=== PATIENT | male | born 1940 | race Caucasian/White ===

== ENCOUNTER 2025-05-25 20:44 | Inpatient (IN) | payer OTHER, SELFPAY ==
--- NOTE | ~2025-05-25 | XR_ITS ---
Examination: XR chest 1V portable Clinical History: stemi Comparison: 05/28/2018 Technique: Portable AP Findings: Cardiomegaly. Minimal bibasilar atelectasis. No acute bony abnormality. IMPRESSION: 1. Minimal bibasilar atelectasis. 2. Lungs otherwise clear. Reviewed, dictated and finalized at location R.
--- NOTE | ~2025-05-25 | XR_ITS ---
Examination: XR chest 1V portable Clinical History: STEMI Comparison: 1 days prior Technique: Portable AP Findings: Heart size normal. Mild bibasilar atelectasis. No acute bony abnormality. IMPRESSION: 1. Developing mild bibasilar atelectasis. Reviewed, dictated and finalized at location R.
--- NOTE | ~2025-05-25 | US_ITS ---
BILATERAL LOWER EXTREMITY VENOUS DUPLEX Clinical History: Swelling . Comparison: None. Technique: Grayscale, color, duplex/spectral Doppler sonography bilateral lower extremities. Findings: Bilateral common femoral, femoral, popliteal, and calf veins compressible and color Doppler patent. Normal augmentation with distal compression. No internal echoes. IMPRESSION: 1. No DVT either leg. Reviewed, dictated and finalized at location R. IMPRESSION: 1. No DVT either leg.
[2025-05-25 20:41] VITALS: BP 119/71; PULSE 71; RESP 25; TEMP 36.8; O2SAT 98
--- NOTE | 2025-05-25 20:45 | ECG_ITS ---
Test Date: 2025-05-25 20:46:05 Measurements Intervals [place] Rate: 80 P: 0 MI: 0 QRS: 0 QRSD: 73 T: 96 QT: 372 QTc: 430 Interpretive Statements SINUS RHYTHM WITH PVCS ACUTE INFERIOR WALL CURRENT OF INJURY /ACUTE TX ABNORMAL ECG No previous ECG available for comparison Electronically Signed On 05-26-2025 08:41:32 CDT by Keith Lopez M.D.
--- NOTE | 2025-05-25 20:53 | ED.CHESTPAIN ---
HPI - Chest Pain General Chief Complaint: Chest Pain Stated Complaint: STEMI Time Seen by Provider: 05/25/25 20:50 Source: patient History of Present Illness HPI narrative: 85 years old white male lives alone, status post cholecystectomy 3 days ago, call 911 because of chest pain retrosternal started 2 hours prior to arrival, not improving on nitroglycerin. According to EMT patient went to [facility], CPR started, shocked once, regular rhythm, vital signs are stable. Trudy Laurie is telling me that last MRI was 1 year ago. Patient hard to hear, report that he does not wish any life support measures. But it is okay to get cardiac catheterization. CURRENTLY PATIENT STILL HAVING CHEST PAIN RADIATING TO UPPER EXTREMITIES AND HEAD. MD complaint: chest pain Review of Systems Review of Systems: ROS unobtainable: Yes unobtainable due to medical condition Exam Narrative: General appearance: Well-developed, well-nourished, hard to hear, poor hygienic condition Skin: Normal color Head: Normocephalic, nontraumatic Eyes: Clear conjunctiva ENT: Dry oral cavity Neck: Supple, nontender Chest and respiratory: Airway patent, no respiratory distress, no accessory muscle use Heart: Regular rate/rhythm Abdomen: Soft, right upper quadrant dressing status post cholecystectomy, no draining, no organomegaly, quiet bowel sounds Neurologic: Alert and oriented ?3, 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 Bennett was notified Discharge Plan Discharge Clinical Impression: ST elevation (STEMI) myocardial infarction Patient Disposition: Still a Patient Condition: Guarded Prognosis Patient Language: Telugu
--- NOTE | 2025-05-25 20:57 | PC.NURSE ---
heparin bolus in @ 2056
[2025-05-25 21:11] VITALS: PULSE 77; RESP 34; O2SAT 98
[2025-05-25] MEDS: PHARMACIST COMMUNICATION ORDER 1 EACH XX (21:12)
[2025-05-25] MEDS: HEPARIN SOD/D5W 100 UNITS/ML 25,000 UNITS/250 ML BAG 8 UNITS IV CONT (21:12)
[2025-05-25 21:17] VITALS: PULSE 87; RESP 27; O2SAT 100
--- OUTSIDE RECORDS SUMMARY | 2025-05-25 21:17 | XMS_ITS | Encounter Summary ---
Author Organization [facility] Healthcare Address [address] [place] [address] Care Team Providers Care Pot Filler Name Role Phone Royce Panda MD Primary Care Provider [phone] Elen Navarro MD Primary Care Provider [phone] No, Physician Primary Care Provider [phone] Na Agarwal MD Primary Care Provider [phone] No, Physician Primary Care Provider [phone] Encounter Details Date Type Department Care Team (Late st Contact Info) Description 05/28/2018 Orders Only [facility] [place] Health Information Management [address] [place] [id number] Scanning, Provider Social History Tobacco Use Types Packs/Day Years Used Date Smoking Tobacco: Every Day Comments:Smoking History Pac ks/day: 1 Packs Alcohol Use Standard Drinks/Week Comments Yes 0 (1 standard drink = 0.6 oz pur e alcohol) Sex and Gender Information Value Date Recorded Sex Assigned at Not on file 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 Gender Identity Not on file Sexual Orientation Not on file documented as of this encounter Plan of Treatment Not on file documented as of this encounter Procedures Procedure Name Priority Date/Time Associated Diagnosis Comments SCAN - RADIOLOGY/IMAGING 05/28/2018 documented in this encounter Results * SCAN - RADIOLOGY/IMAGING (05/28/2018) Anatomical Region Laterality Modality Other us Provider Scanning Final Result documented in this encounter Visit Diagnoses Not on filedocumented in this encounter Care Teams Pot Filler Relationship Specialty Start Date End Date Royce Panda MD PCP - General 09/04/13 02/12/19 Elen Navarro MD PCP - General Family Medicine 02/13/19 02/21/19 No, Physician PCP - General 02/22/19 07/09/20 Na Agarwal MD PCP - General Nurse Practitioner 07/10/20 03/03/22 No, Physician PCP - General 03/04/22 documented as of this encounter
--- OUTSIDE RECORDS SUMMARY | 2025-05-25 21:17 | XMS_ITS | Encounter Summary ---
Author Organization [facility] Healthcare Address [address] [place] [address] Care Team Providers Care Supervising Chef Name Role Phone Royce Panda MD Primary Care Provider [phone] Elen Navarro MD Primary Care Provider [phone] No, Physician Primary Care Provider [phone] Na Agarwal MD Primary Care Provider [phone] No, Physician Primary Care Provider [phone] Encounter Details Date Type Department Care Team (Late st Contact Info) Description 05/30/2018 [place] Only [facility] [place] [address] [place] [id number] Scanning, Provider Social History Tobacco Use Types Packs/Day Years Used Date Smoking Tobacco: Every Day Comments:Smoking History Pac ks/day: 1 Packs Alcohol Use Standard Drinks/Week Comments Yes 0 (1 standard drink = 0.6 oz pur e alcohol) Sex and Gender Information Value Date Recorded Sex Assigned at Not on file 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 Gender Identity Not on file Sexual Orientation Not on file documented as of this encounter Plan of Treatment Not on file documented as of this encounter Procedures Procedure Name Priority Date/Time Associated Diagnosis Comments CARDIOLOGY DOCUMENT SCAN 05/30/2018 documented in this encounter Results * Cardiology Document Scan (05/30/2018) Anatomical Region Laterality Modality Other us Provider Scanning CV CARDIAC SERVICES PROCEDURES Edited Result - Final documented in this encounter Visit Diagnoses Not on filedocumented in this encounter Care Teams Supervising Chef Relationship Specialty Start Date End Date Royce Panda MD PCP - General 09/04/13 02/12/19 Elen Navarro MD PCP - General Family Medicine 02/13/19 02/21/19 No, Physician PCP - General 02/22/19 07/09/20 Na Agarwal MD PCP - General Nurse Practitioner 07/10/20 03/03/22 No, Physician PCP - General 03/04/22 documented as of this encounter
--- OUTSIDE RECORDS SUMMARY | 2025-05-25 21:18 | XMS_ITS | Clinical Summary ---
Author Organization [facility] [place] [address] Address [address] [place] [address] Care Team Providers Care Customs Appraiser Name Role Phone No, Physician Primary Care Provider [phone] Allergies Active Allergy Reactions Criticality Noted Date Comments Acetaminophen Unknown 04/07/2010 Aspirin Meperidine Unknown 04/07/2010 Penicillins Poison Neena Extract Medications atorvastatin (LIPITOR) 40 mg tablet Take 40 mg by mouth daily. [address] (PROTONIX) 40 mg EC tablet Take 40 mg by mouth daily. 0 8 Active nitroglycerin (NITROSTAT) 0.[address] 1 tablet (0.4 mg total) under the tongue every 5 (five) minutes as needed for chest pain. 90 tablet 8 Active Additional Information Patient not taking.Reported on 03/04/2022 clopidogrel (PLAVIX) 75 mg tablet Take 1 tablet (75 mg total) by mouth daily. 30 tablet 11 8 Active Additional Information Patient not taking.Reported on 03/04/2022 cyanocobalamin 2,000 mcg tablet Take 2,000 mcg by mouth daily Active isosorbide mononitrate ER (IMDUR) 30 mg 24 hr tablet Take 1 tablet (30 mg total) by mouth daily 30 tablet 11 0 Active Additional Information Patient not taking.Reported on 03/04/2022 amLODIPine (NORVASC) 10 mg tablet Take 1 tablet (10 mg total) by mouth daily 30 tablet 11 0 Active Additional Information Patient not taking.Reported on 03/04/2022 lisinopriL (PRINIVIL,ZESTRI L) 10 mg tablet Take 1 tablet (10 mg total) by mouth daily 30 tablet 11 0 Active Additional Information Patient not taking.Reported on 03/04/2022 Active Problems Problem Noted Date Diagnosed Date History of heart artery stent 07/10/2020 Lumbar radiculopathy 02/11/2016 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 Abdominal aortic aneurysm (AAA) 01/31/2015 Atherosclerosis of coronary artery 03/06/2013 Overview (12/17/2016): CAD, Unspecified Immunizations Immunization Administration Dates Next Due Tdap 09/06/2009 Medical History Medical History Date Comments Hx Other Medical Back pain Gout Gout Chronic coronary artery disease Coronary artery disease Hypertension Hyperlipidemia Family History Medical History Relation Name Comments Coronary artery disease Mother Fami ly history of coronary artery disease - (Added by TW Conv) Relation Name Status Comments Mother Social History Tobacco Use Types Packs/Day Years Used Date Smoking Tobacco: Every Day Cigarettes Tobacco Cessation:Ready to Q uit: No; Counseling Given: Yes Comments:Smoking History Packs/day: 1 Packs Alcohol Use Standard Drinks/Week Comments Yes 0 (1 standard drink = 0.6 oz pur e alcohol) Sex and Gender Information Value Date Recorded Sex Assigned at Not on file 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 Gender Identity Not on file Sexual Orientation Not on file Obstetrics History Last Filed Vital Signs Vital Sign Reading Time Taken Comments Blood Pressure 116/74 03/04/2022 2:03 PM CDT Pulse 105 03/04/2022 2:03 PM CDT Temperature 36.3 C (97.3 F) 03/17/2021 10:16 AM CDT Respiratory Rate 15 07/10/2020 11:36 AM ANIMAL CARE ATTENDANT Oxygen Saturation 96% 03/04/2022 2:03 PM CDT Inhaled Oxygen Concentration - - Weight 71.7 kg (158 lb) 03/04/2022 2:03 PM CDT Height 165.1 cm (5' 5) 03/04/2022 2:03 PM CDT Body Mass Index 26.29 03/04/2022 2:03 PM CDT Plan of Treatment Not on file Insurance [facility] [place] Care Teams Customs Appraiser Relationship Specialty Start Date End Date No, Physician PCP - General 03/04/22
--- OUTSIDE RECORDS SUMMARY | 2025-05-25 21:18 | XMS_ITS | Clinical Summary ---
Author Organization [facility] Address [address] [place] [address] Care Team Providers Care Natural Sciences Professor Name Role Phone Oskar Renee MD Unavailable [phone] Na Agarwal NP Primary Care Provider [phone] Gala Agarwal RN Unavailable [phone] Allergies Active Allergy Reactions Criticality Noted Date Comments Aspirin Rash Low Pt states he has been able to tolerate recently with no issues Meperidine Anaphylaxis High 12/10/2015 Demerol Penicillins Seizure,Vomiting High 12/10/2015 Poison Neena Extract Rash Low Medications pantoprazole EC (PROTONIX) 40 MG tabletIndication s: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 90 tablet 1 3 Active Additional Information Patient not taking.Reported on 03/02/2025 nitroglycerin (NITROSTAT) 0.4 MG SL tabletIndication s:Hx of heart artery stent,Coronary artery disease without angina pectoris, unspecified vessel or lesion type, unspecified whether king salmon or transplanted heart Take 1 tablet under tongue at first sign of chest pain. Use every 5 minutes up to 15 minutes. Max 3 tablets 90 tablet 1 3 Active Additional Information Patient not taking.Reported on 03/02/2025 prednisoLONE acetate (PRED FORTE) 1 % ophthalmic suspension Place 1 drop into both eyes 4 (four) times daily. Active albuterol sulfate HFA 108 (90 Base) MCG/ACT inhaler Inhale 2 puffs into the lungs every 6 (six) hours as needed for Shortness of breath or Wheezing. 1 g 4 Active Additional Information Patient not taking.Reported on 03/02/2025 atorvastatin (LIPITOR) 40 MG tabletIndication s:Atherosclerosi s of both carotid arteries Take 1 tablet (40 mg total) by mouth daily. 90 tablet 1 4 Active Additional Information Patient not taking.Reported on 03/02/2025 clopidogrel (PLAVIX) 75 MG tabletIndication s:Coronary artery disease without angina pectoris, unspecified vessel or lesion type, unspecified whether king salmon or transplanted heart,Hx of heart artery stent Take 1 tablet (75 mg total) by mouth daily. 90 tablet 1 4 Active Additional Information Patient not taking.Reported on 03/02/2025 allopurinol (ZYLOPRIM) 100 MG tablet Take 1 tablet (100 mg total) by mouth daily. 4 Active metoprolol tartrate (LOPRESSOR) 25 MG tabletIndication s:Coronary artery disease without angina pectoris, unspecified vessel or lesion type, unspecified whether king salmon or transplanted heart TAKE 1 TABLET(25 MG) BY MOUTH TWICE DAILY 90 tablet 1 4 Active Additional Information Patient not taking.Reported on 03/02/2025 naloxone (NARCAN) 4 MG/0.1ML nasal sprayIndications :Opioid use 1 spray by Nasal route as needed for Opioid reversal. 1 each 5 Active cefdinir (OMNICEF) 300 MG Cap capsuleIndicatio ns:Pneumonia Take 1 capsule (300 mg total) by mouth 2 (two) times daily for 2 days. 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 Chronic low back pain 12/10/2015 Gout 12/10/2015 Insomnia 12/10/2015 Limb pain 12/10/2015 Abdominal aortic aneurysm (AAA) 01/31/2015 Atherosclerosis of coronary artery 03/06/2013 Overview (02/13/2019): Overview: CAD, Unspecified Encounters Date Type Department Care Team Description 05/23/2025 10:30 AM CDT Home Care Visit [facility] [address] [facility] [place] [address] [phone] Sharon Ram RN SN NON ADMIT SOC 05/23/2025 Hospital Follow-up [place] [address] Aaliyah Nowak LPN Follow Up Call (SOO 05/15-05/21/25) 05/22/2025 Telephone [place] [phone] [facility] [address] [place] [phone] Na Agarwal NP TCM 05/22/2025 Patient Outreach [facility] [address] [facility] [address] [place] [address] Gala Agarwal RN TCM (TCM SOO 05/15-05/21/25- cholecystitis. ) 05/21/2025 10:00 AM CDT Home Care Visit [place] [address] [place] [address] [place] [phone] Antonella Dumont, [employer] TELEPHONE CALL 05/21/2025 Telephone [facility] [place] [address] [facility] [place] [phone] Na Agarwal NP Advise 05/16/2025 7:14 PM CDT Anesthesia [place] [address] Stanley Singh MD 05/16/2025 6:30 PM CDT - 05/16/2025 8:[address] [place] [address] Calin Chavez DO Robotic assisted laparoscopic cholecystectomy with indocyanine green 05/16/2025 Patient Outreach [facility] Family [facility] [address] [facility] [address] [place] [address] Gala Agarwal, RN Hospital Follow Up (TCM SOO admit 05/15/25- cholecystitis. ) 05/16/2025 Travel 05/15/2025 11:06 PM CDT - 05/21/2025 1:58 PM CDT Hospital Encounter [facility] [address] Farzana Gaming DO Elayyan, Ibrahim B, MD McGowen, Payton K, MD Simpson, Stephanie L, Luciano Burr MD Chest Pain Discharge Disposition: Home with Home Health Care 05/07/2025 4:01 AM CDT - 05/07/2025 8:40 AM CDT Emergency [facility] [place] [address] Pritesh Mary MD,PHD Sherman Walsh MD Chest Pain Discharge Disposition: Home or Self Care (Routine Discharge) 05/07/2025 Travel 03/05/2025 Telephone [facility] - [place] [address] [place] [address] Santi Steele MD Appointment Request 03/02/2025 11:20 AM CDT Office Visit [address] [place] [phone] Na Agarwal NP TCM (Patient presents for TCM from [facility] for fractured Humerus, discharged 02/22/2025. Having lots of pain./) 03/02/2025 Travel 02/27/2025 Patient Outreach [address] [phone] Gala Agarwal RN Hospital Follow Up (Call to patient's son. ) 02/26/2025 Patient Outreach [address] [address] Gala Agarwal RN TCM (TCM SOO 02/21-02/23/25- humeral fracture. ) 02/24/2025 Scan [email or web address] [facility] Scanned, [facility] 02/22/[address] [address] Na Agarwal NP TCM 02/22/2025 Patient Outreach [address] [address] Gala Agarwal RN Hospital Follow Up (TCM SOO admit 02/21/25- humeral fracture. ) 02/21/2025 9:26 PM CDT - 02/23/2025 11:58 AM CDT Hospital Encounter [facility] Med/Surg 3rd Floor [address] [facility] [place] [address] Pritesh Mary MD,PHD Brent Spaulding MD Simpson, Stephanie L, DO Fall; Facial Injury Discharge Disposition: Home or Self Care (Routine Discharge) from Last 3 Months Immunizations Immunization Administration Dates Next Due DT (Generic) 05/09/2010 Tdap (Boostrix) 02/21/2025 Tdap (Generic) 03/11/2021,09/06/2009 Family History Medical History Relation Comments Alzheimers Brother Heart Disease Brother Stroke Brother Alzheimers Daughter None Mother Heart Disease Sister Relation Status Comments Brother Daughter Mother Sister Social History Tobacco Use Types Packs/Day Years Used Date Smoking Tobacco: Every Day Cigarettes 1 64 Passive Smoke Exposure: Current Smokeless Tobacco: Never Tobacco Cessation:Ready to Q uit: No; Counseling Given: Yes Comments:Smokes since age 15 Alcohol Use Standard Drinks/Week Comments No 0 (1 standard drink = 0.6 oz pur e alcohol) [facility] Utilities Answer Date Recorded In the past 12 months has e [employer], gas, oil, or water [employer] threatened to shut off services in your home? No 05/16/2025 Humiliation, Afraid, Rape, and Kick questionnair e Answer Date Recorded Within the last year, have y ou been afraid of your partner or ex-partner? No 05/16/2025 Within the last year, have y ou been humiliated or emotionally abused in other ways by your partner or ex-partner? No Within the last year, have y ou been kicked, hit, slapped, or otherwise physically hurt by your partner or ex-partner? No 05/16/2025 Within the last year, have y ou been raped or forced to have any kind of sexual activity by your partner or ex-partner? No 05/16/2025 AUDIT-C Answer Date Recorded Q1: How often do you have a drink containing alc ohol? Never 08/01/2023 Average Number of Drinks Not on file 023 Frequency of Binge Drinking Not on file 07/08 Overall Financial Resource Strain (CARDIA) Answe r Date Recorded How hard is it for you to pa y for the very basics like food, housing, medical care, and heating? Somewhat hard 05/16/2025 PHQ-2 Answer Date Recorded Patient Health Questionnaire-2 Score 0 01/25/2024 Hunger Vital Sign Answer Date Recorded Within the past 12 months, y ou worried that your food would run out before you got the money to buy more. Sometimes true Within the past 12 months, t he food you bought just didn't last and you didn't have money to get more. Sometimes true 06/2025 PRAPARE - Transportation Answer Date Re corded In the past 12 months, has l ack of transportation kept you from medical appointments or from getting medications? No 05/07 In the past 12 months, has l ack of transportation kept you from meetings, work, or from getting things needed for daily living? No 05/16/2025 Housing Stability Vital Sign Answer Daniel e Recorded In the last 12 months, was t here a time when you were not able to pay the mortgage or rent on time? Patient declined 08/01/20 23 In the last 12 months, how many places have you lived? 1 08/01/2023 In the last 12 months, was t here a time when you did not have a steady place to sleep or slept in a [place] (including now)? No 08/01/2023 Housing Stability Vital Sign Answer Daniel e Recorded In the last 12 months, was t here a time when you were not able to pay the mortgage or rent on time? No 05/16/2025 In the past 12 months, how m any times have you moved where you were living? 0 05/16/2025 At any time in the past 12 m [facility], were you homeless or living in a [place] facility (including now)? No 05/16/2025 Sex and Gender Information Value Date Recorded Sex Assigned at Male 02/22/2025 3:37 AM CDT Legal Sex Male 2:41 PM CDT Gender Identity Male 02/22/2025 3:37 AM CDT Sexual Orientation Straight 02/22/2025 3: 37 AM CDT Last Filed Vital Signs Vital Sign Reading Time Taken Comments Blood Pressure 150/89 05/21/2025 11:31 AM CDT Pulse 69 05/21/2025 11:31 AM CDT Temperature 36.9 C (98.4 F) 05/21/2025 11:31 AM CDT Respiratory Rate 19 05/21/2025 11:3 1 AM CDT Oxygen Saturation 94% 05/21/2025 11: 31 AM CDT Inhaled Oxygen Concentration - - Weight 69.3 kg (152 lb 12.5 oz) 05/21/2025 3:46 AM CDT Height 165.1 cm (5' 5) 05/15/2025 11:1 7 PM CDT Body Mass Index 25.42 05/15/2025 11:17 PM CDT Plan of Treatment Upcoming Encounters Date Type Department Care Team (Late st Contact Info) Description 06/04/2025 12:40 PM CDT Office Visit [facility] Family [facility] - [place] [address] [facility] [address] [place] [address] Na Agarwal, KEARA [address] [place], [place] [address] Health Maintenance Due Date Last Done Comments Pneumococcal Vaccine: 50+ Years (1 of 2 - PCV) 01/05/1959 Zoster Vaccines (1 of 2) 1991 RSV Immunization or 60+ Years (1 - 1-dose 75+ series) 01/05/2016 PHQ-2 (Physician [place]) 09/06/2024 01/25/2024 ASCVD LDL 02/04/2025 02/05/2024, 1110/2022, 06/11/2020, Additional history exists COVID-19 Vaccine ( - 2023- season) 2025 Annual Medicare Wellness Visit 12/19/2025 Postponed from 2006 (Patient Refused) DTaP, Tdap and Td Vaccines (5 - Td or Tdap) 02/21/2035 02/21/2025, 03/11/2021, 05/09/2010, Additional history exists Meningococcal B Vaccine Aged Out No l onger eligible based on patient's age to complete this topic Meningococcal Vaccine Aged Out No darrel fern eligible based on patient's age to complete this topic RSV Immunizations Under 20 Months Aged Out No longer eligible based on patient's age to complete this topic Goals Goal Patient Goal Type Associated Problems Recent Progress Patient-Stated? Author Family - family caregiver with be involved in care transitions and discharge planning Lifestyle No Carlos Arango, RN Consistently take medications as Prescribed Lifestyle No Gala Agarwal, RN Interventions Community Resource Recommendations Community Resource Services Recommended Domains Addressed Status Status Reason/Outcome Date/Time LIHEAP Financial Assistance Financial Resource Strain Recommended 05/16/2025 1:18 PM CDT [facility] - Housing Counseling Financial Education, Foreclosure Counseling, Homebuyer Education Financial Resource Strain Recommended 05/16/2025 1:18 PM CDT [facility] - Utility Assistance Financial Assistance Financial Resource Strain Recommended 05/16/2025 1:[address] - MedAssist Program Prescription Assistance Financial Resource Strain Recommended 05/16/2025 1:18 PM CDT [facility] - Food Pantry Food Pantry Food Insecurity Recommended 05/16/2025 1:18 PM CDT [place] [employer] - [facility] Meals [employer] Wheels Food Delivery Food Insecurity Recommended 05/16/2025 1:18 PM CDT [facility] - Food Pantry Food Pantry Food Insecurity Recommended 05/16/2025 1:18 PM CDT [facility] Food Pantry Food Pantry Food Insecurity Recommended 05/16/2025 1:18 PM CDT [facility] - Food Pantries Food Pantry Food Insecurity Recommended 05/16/2025 1:18 PM CDT [facility] - Emergency Food Pantry of [facility] Food Pantry Food Insecurity Recommended 05/16/2025 1:18 PM CDT [facility] Food Pantry Food Pantry Food Insecurity Recommended 05/16/2025 1:18 PM CDT [employer] [employer] Food Insecurity Services Food Insecurity Recommended 03/25/2025 11:41 PM CDT [facility] Food Pantry Food Insecurity Services Food Insecurity Recommended 03/25/2025 11:41 PM CDT [facility] Financial Assistance Financial Resource Strain Recommended 03/25/2025 11:41 PM CDT from Last 12 Months Procedures Procedure Name Priority Date/Time Associated Diagnosis Comments BASIC METABOLIC PANEL Routine 05/21/2025 5:42 AM CDT CBC W/DIFF AUTOMATED Routine 05/21/2025 5:42 AM CDT BASIC METABOLIC PANEL Routine 05/20/2025 6:24 AM CDT CBC W/DIFF AUTOMATED Routine 05/20/2025 6:24 AM CDT CBC W/DIFF AUTOMATED Routine 05/19/2025 6:44 AM CDT BASIC METABOLIC PANEL Routine 05/19/2025 6:44 AM CDT CTA CHEST PE PROTOCOL Today 05/18/2025 8:39 PM CDT RESPIRATORY PCR PANEL 2 STAT 05/18/20 5:10 PM CDT XR CHEST PORTABLE Today 05/18/2025 11: 01 AM CDT HEPATIC FUNCTION PANEL STAT 8:42 AM CDT BASIC METABOLIC PANEL Routine 05/18/2025 6:00 AM CDT CBC W/DIFF AUTOMATED Routine 05/18/2025 6:00 AM CDT CBC W/DIFF AUTOMATED Routine 05/17/2025 5:50 AM CDT MAGNESIUM Routine 05/17/2025 5:50 AM CDT COMPREHENSIVE METABOLIC PANEL Routine 05/17/2025 5:50 AM CDT ECG 12-LEAD Routine 05/16/2025 9:35 PM CDT MAGNESIUM Routine 05/16/2025 9:29 PM CDT BASIC METABOLIC PANEL Routine 05/16/2025 9:29 PM CDT TROPONIN, QUANT Routine 05/16/2025 9:29 PM CDT ROBOTIC XI CHOLECYSTECTOMY 05/16/2025 7:14 PM CDT cholecystitis US ABD LIMITED STAT 05/16/2025 10:19 AM CDT TROPONIN, QUANT STAT 05/16/2025 5:17 AM CDT THYROID STIM HORMONE TSH STAT 05/16/2025 5:17 AM CDT HEMOGLOBIN, GLYCOSYLATED Routine 05/16/2025 5:17 AM CDT MAGNESIUM STAT 05/16/2025 5:17 AM CDT COMPREHENSIVE METABOLIC PANEL STAT 05/16/2025 5:17 AM CDT PROTHROMBIN TIME, VENOUS STAT 05/16/2025 5:17 AM CDT CBC W/DIFF AUTOMATED STAT 05/16/2025 5:17 AM CDT ECG 12-LEAD STAT 05/16/2025 2:32 AM CDT TROPONIN, QUANT STAT 05/16/2025 2:27 AM CDT CRITICAL CARE Routine 05/16/2025 1:03 AM CDT CTA CHEST+CT ABD+PEL W CON STAT 05/16/2025 12:29 AM CDT PATHOLOGY Routine 05/16/2025 12:00 AM CDT XR CHEST PORTABLE STAT 05/15/2025 11: 39 PM CDT ECG 12-LEAD STAT 05/15/2025 11:15 PM CDT LIPASE STAT 05/15/2025 11:12 PM CDT MAGNESIUM STAT 05/15/2025 11:12 PM CDT TROPONIN, QUANT STAT 05/15/2025 11:12 PM CDT COMPREHENSIVE METABOLIC PANEL STAT 05/15/2025 11:12 PM CDT CBC W/DIFF AUTOMATED STAT 05/15/2025 11:12 PM CDT PRO-BRAIN NATRIURETIC PEPTIDE Routine 05/15/2025 11:10 PM CDT CTA CHEST+CT ABD+PEL W CON STAT 05/07/2025 6:06 AM CDT TROPONIN, QUANT STAT 05/07/2025 6:05 AM CDT ECG 12-LEAD STAT 05/07/2025 5:52 AM CDT XR CHEST PORTABLE STAT 05/07/2025 4:4 3 AM CDT TROPONIN, QUANT STAT 05/07/2025 4:01 AM CDT COMPREHENSIVE METABOLIC PANEL STAT 05/07/2025 4:01 AM CDT CBC W/DIFF AUTOMATED STAT 05/07/2025 4:01 AM CDT ECG 12-LEAD STAT 05/07/2025 3:54 AM CDT BASIC METABOLIC PANEL Routine 02/23/2025 4:50 AM CDT MAGNESIUM Routine 02/23/2025 4:50 AM CDT CBC W/DIFF AUTOMATED Routine 02/23/2025 4:50 AM CDT COMPREHENSIVE METABOLIC PANEL STAT 02/22/2025 12:45 AM CDT CBC W/DIFF AUTOMATED STAT 02/22/2025 12:[address] SHOULDER RT WO CON STAT 02/22/2025 12:19 AM CDT LIPID PANEL Routine 02/05/2024 10:44 AM CDT Atherosclerosis of both carotid arteries from Last 3 Months or Most Recently Relevant to Health Maintenance Results * (ABNORMAL) BASIC METABOLIC PANEL (05/21/2025 5:42 AM CDT) Only the most recent of6 resultswithin the time period is included. [facility] GLUCOSE 110(H) 70 - 99 MG/DL 05/21/2025 7:12 AM CDT [facility] BUN 9 7 - 18 MG/DL 05/21/2025 7:12 AM T [facility] CREATININE S/P/B 0.76 0.7 - 1.3 MG/DL 05/21/2025 7:12 AM CDT [facility] SODIUM S/P/B 142 136 - 145 MMOL/L 05/21/2025 7:12 AM T [facility] POTASSIUM S/P/B 3.5 3.5 - 5.1 MMOL/L 05/21/2025 7:12 AM T [facility] CHLORIDE S/P/B 115 97 - 115 MMOL/L 05/21/2025 7:12 AM T [facility] CO2 22.2 21 - 32 MMOL/L 05/21/2025 7:12 AM T [facility] CALCIUM S/P/B 8.2(L) 8.5 - 10.1 MG/DL 05/21/2025 7:12 AM T [facility] ANION GAP 4.8 2 - 10 MMOL/L 05/21/2025 7:12 AM T [facility] BUN CREATININE RATIO 11.9 6 - 26 05/21/2025 7:12 AM T [facility] GFR ESTIMATE 89(L) >90 ML/MIN/1.7 3 M2 05/21/2025 7:12 AM T [facility] Comment: NOTE: eGFR is not calculated for patients <18 years of age or gender unknown. This is an estimated GFR calculation using the new CKD EPI creatinine equation without race and so does not require a correction factor for race. This estimated GFR should not be used for calculating drug doses. 05/21/2025 5:42 AM CDT Luciano Clark MD LABORATORY Final Result [facility] [address] [place] [address], * (ABNORMAL) CBC W/DIFF AUTOMATED (05/21/2025 5:42 AM CDT) Only the most recent of10 resultswithin the time period is included. WBC 8.44 4.5 - 11.0 x10'3/uL 05/21/2025 7:22 AM CDT [facility] RBC 3.56(L) 4.70 - 6.10 x10'6/uL 05/21/2025 7:22 AM CDT [facility] HGB 11.0(L) 14.0 - 18.0 G/DL 05/21/2025 7:22 AM CDT [facility] HCT 33.5(L) 43.0 - 54.0 % 05/21/2025 7:22 AM CDT [facility] MCV 94.1(H) 80.0 - 94.0 FL 05/21/2025 7:22 AM CDT [facility] MCH 30.9 27.0 - 31.0 PG 05/21/2025 7:22 AM CDT [facility] MCHC 32.8 32.0 - 36.0 G/DL 05/21/2025 7:22 AM CDT [facility] RDW 13.6 11.5 - 14.5 % 05/21/2025 7:22 AM CDT [facility] PLT 148 130 - 400 x10'3/uL 05/21/2025 7:22 AM CDT [facility] MPV 11.6 9.3 - 12.2 FL 05/21/2025 7:22 AM CDT [facility] DIFFERENTIAL TYPE AUTOMATED DIFFERENTIAL 05/21/2025 7:22 AM CDT [facility] NEUTROPHILS % 60.8 % 05/21/2025 7:22 AM CDT [facility] LYMPHOCYTES % 23.8 % 05/21/2025 7:22 AM CDT [facility] MONOCYTES % 10.2 % 05/21/2025 7:22 AM T [facility] EOSINOPHILS 4.1 % 05/21/2025 7:22 AM T [facility] BASOPHILS 0.6 % 05/21/2025 7:22 AM T [facility] IMMATURE GRANS % 0.5 % 05/21/20 7:22 AM CDT [facility] ABS. NEUTROPHILS 5.13 1.80 - 7.70 x10'3/uL 05/21/2025 7:22 AM CDT [facility] ABS. LYMPHOCYTES 2.01 1.00 - 4.80 x10'3/uL 05/21/2025 7:22 AM CDT [facility] ABS. MONOCYTES 0.86(H) 0.30 - 0.82 x10'3/uL 05/21/2025 7:22 AM CDT [facility] ABS. EOSINOPHILS 0.35 0.04 - 0.54 x10'3/uL 05/21/2025 7:22 AM CDT [facility] ABS. BASOPHILS 0.05 0.01 - 0.08 x10'3/uL 05/21/2025 7:22 AM CDT [facility] ABS. IMMATURE GRANULOCYTES 0.04 0.00 - 0.49 x10'3/uL 05/21/2025 7:22 AM CDT [facility] RBC MORPHOLOGY SLIDE REVIEWED 2024 7:22 AM CDT [facility] Clumped Platelets 1+ 05/21/2025 7:22 AM CDT [facility] PLT EST. ADEQUATE 05/21/2025 7:22 AM CDT [facility] 05/21/2025 5:42 AM CDT Merry Haskins DO LABORATORY Final Res ult [facility] [address] [place] [address], [place] [phone] * CTA CHEST PE PROTOCOL (05/18/2025 8:39 PM CDT) Anatomical Region Laterality Modality Chest Computed Tomogra phy 05/18/2025 8:46 PM CDT Impressions 05/18/2025 8:56 PM CDT IMPRESSION: 1. There is no acute pulmonary embolism to the first subsegmental pulmonary artery level. 2. CT findings suggestive of right lung multifocal pneumonia/aspiration. A follow- up CT chests in 8-12 weeks is recommended to ensure complete resolution. 3. Mild pulmonary vascular congestion. 4. Mild bilateral bronchial wall thickening, which can be seen with small infection/inflammation, volume overload or reactive airway disease 5. Trace right pleural effusion. 6. Cardiomegaly with moderate coronary calcific atherosclerosis. 7. Diffuse body edema, likely secondary to volume overload. Ordered By: MERRY HASKINS Interpreted By: Guy Mcneil MD, 05/18/2025 8:46 PM Narrative 05/18/2025 8:[address] [facility] [address] [place], [place] [address] PROCEDURE: CTA CHEST PE PROTOCOL. HISTORY: Evaluate for pulmonary embolism. Hypoxia rule out pulmonary embolism. TECHNIQUE: Contrast enhanced helical CT pulmonary angiography was then performed (Isovue- 370, 100 mL). Routine transaxial and post-processed (sagittal and coronal MPR) reformations of the acquired data sets were obtained. Standard 3-D (MIP) reformations of the acquired data sets were also obtained. A dose lowering technique was used for this procedure, which may include, but is not limited to, dose reduction technique, automated exposure control, the use of iterative reconstruction, and ALARA (As Low As Reasonably Achievable) / Image Gently techniques. COMPARISON: CT chests, CT abdomen pelvis with contrast, 05/16/2025. PULMONARY CTA FINDINGS: This is a diagnostic quality helical CT pulmonary angiogram. There is no acute pulmonary embolism to the first subsegmental pulmonary artery level. OTHER FINDINGS: Support Devices: None. Heart/Pericardium/Great Vessels: Cardiac size is enlarged. There is moderate calcific coronary artery atherosclerosis. There is no pericardial effusion. There is mild thoracic aortic and branch vessel atherosclerosis, portions calcific. The main pulmonary artery is normal in diameter. The mid ascending thoracic aorta measures up to 3.5 cm. Pleural Spaces: Trace right pleural effusion. Left pleural space is clear. Mediastinum/Tessie: There is no mediastinal or hilar lymph node enlargement. Neck Base/Chest Wall/Diaphragm/Upper Abdomen: There is no supraclavicular or axillary lymph node enlargement. There is a subhepatic surgical drain within the right upper quadrant. Limited imaging through the upper abdomen is within normal limits. Multilevel change is present in the spine. There is diffuse wall edema Lungs/Central Airways: The trachea and central airways are clear normal in caliber. There is bilateral bronchial wall thickening. There are right basilar groundglass and consolidative opacities. There is a peripheral right upper lobe groundglass opacity.. Mild pulmonary vascular congestion. Procedure Note Guy Mcneil MD - 05/18/2025 [facility] [address] [place], [place] [address] PROCEDURE: CTA CHEST PE PROTOCOL. HISTORY: Evaluate for pulmonary embolism. Hypoxia rule out pulmonaryembolism. TECHNIQUE: Contrast enhanced helical CT pulmonary angiography was thenperformed (Isovue-370, 100 mL). Routine transaxial and post-processed(sagittal and coronal MPR) reformations of the acquired data sets wereobtained. Standard 3-D (MIP) reformations of the acquired data sets werealso obtained. A dose lowering technique was used for this procedure, which may include,but is not limited to, dose reduction technique, automated exposurecontrol, the use of iterative reconstruction, and ALARA (As Low AsReasonably Achievable) / Image Gently techniques. COMPARISON: CT chests, CT abdomen pelvis with contrast, 05/16/2025. PULMONARY CTA FINDINGS: This is a diagnostic quality helical CT pulmonaryangiogram. There is no acute pulmonary embolism to the first subsegmentalpulmonary artery level. OTHER FINDINGS: Support Devices: None. Heart/Pericardium/Great Vessels: Cardiac size is enlarged. There is moderate calcific coronary artery atherosclerosis. There is no pericardial effusion. There is mild thoracic aortic and branch vessel atherosclerosis,portions calcific. The main pulmonary artery is normal in diameter. The mid ascendingthoracic aorta measures up to 3.5 cm. Pleural Spaces: Trace right pleural effusion. Left pleural space isclear. Mediastinum/Tessie: There is no mediastinal or hilar lymph nodeenlargement. Neck Base/Chest Wall/Diaphragm/Upper Abdomen: There is no supraclavicularor axillary lymph node enlargement. There is a subhepatic surgical drainwithin the right upper quadrant. Limited imaging through the upper abdomenis within normal limits. Multilevel change is present in the spine. Thereis diffuse wall edema Lungs/Central Airways: The trachea and central airways are clear normalin caliber. There is bilateral bronchial wall thickening. There are rightbasilar groundglass and consolidative opacities. There is a peripheralright upper lobe groundglass opacity.. Mild pulmonary vascularcongestion. IMPRESSION: 1. There is no acute pulmonary embolism to the first subsegmentalpulmonary artery level. 2. CT findings suggestive of right lung multifocal pneumonia/aspiration.A follow-up CT chests in 8-12 weeks is recommended to ensure completeresolution. 3. Mild pulmonary vascular congestion. 4. Mild bilateral bronchial wall thickening, which can be seen with smallinfection/inflammation, volume overload or reactive airway disease 5. Trace right pleural effusion. 6. Cardiomegaly with moderate coronary calcific atherosclerosis. 7. Diffuse body edema, likely secondary to volume overload. Ordered By: MERRY HASKINS Interpreted By: Guy Mcneil MD, 05/18/2025 8:46 PM us Merry Haskins DO CT Final Res ult * RESPIRATORY PCR PANEL 2 (05/18/2025 5:10 PM CDT) Pathologist [facility] ADENOVIRUS PCR (RESP) NOT DETECTED NOT DETECTED 05/18/2025 6:15 PM CDT [facility] CORONAVIRUS 229E PCR (RESP) NOT DETECTED NOT DETECTED 05/18/2025 6:15 PM CDT [facility] CORONAVIRUS HKU1 PCR (RESP) NOT DETECTED NOT DETECTED 05/18/2025 6:15 PM CDT [facility] CORONAVIRUS NL63 PCR (RESP) NOT DETECTED NOT DETECTED 05/18/2025 6:15 PM CDT [facility] CORONAVIRUS OC43 PCR (RESP) NOT DETECTED NOT DETECTED 05/18/2025 6:15 PM CDT [facility] METAPNEUMOVIRUS PCR (RESP) NOT DETECTED NOT DETECTED 05/18/2025 6:15 PM CDT [facility] RHINOVIRUS/ENTEROV IRUS PCR (RESP) NOT DETECTED NOT DETECTED 05/18/2025 6:15 PM CDT [facility] INFLUENZA A PCR (RESP) NOT DETECTED NOT DETECTED 05/18/2025 6:15 PM CDT [facility] INFLUENZA B PCR (RESP) NOT DETECTED NOT DETECTED 05/18/2025 6:15 PM CDT [facility] PARAINFLUENZA 1 PCR (RESP) NOT DETECTED NOT DETECTED 05/18/2025 6:15 PM CDT [facility] PARAINFLUENZA 2 PCR (RESP) NOT DETECTED NOT DETECTED 05/18/2025 6:15 PM CDT [facility] PARAINFLUENZA 3 PCR (RESP) NOT DETECTED NOT DETECTED 05/18/2025 6:15 PM CDT [facility] PARAINFLUENZA 4 PCR (RESP) NOT DETECTED NOT DETECTED 05/18/2025 6:15 PM CDT [facility] RSV PCR (RESP) NOT DETECTED NOT DETECTED 05/18/2025 6:15 PM CDT [facility] B PARAPERTUSIS PCR (RESP) NOT DETECTED NOT DETECTED 05/18/2025 6:15 PM CDT [facility] BORDETELLA PERTUSSIS PCR (RESP) NOT DETECTED NOT DETECTED 05/18/2025 6:15 PM CDT [facility] CHLAMYDOPHILA PNEUMONIAE PCR (RESP) NOT DETECTED NOT DETECTED 05/18/2025 6:15 PM CDT [facility] MYCOPLASMA PNEUMONIAE PCR (RESP) NOT DETECTED NOT DETECTED 05/18/2025 6:15 PM CDT [facility] CORONAVIRUS SARS COV 2 PCR (RESP) NOT DETECTED NOT DETECTED 05/18/2025 6:15 PM CDT [facility] NASOPHARYNGEAL SWAB / Unknown 05/18/2025 5:10 PM CDT Merry Haskins DO MICROBIOLOGY - GENERAL OR DERABLES Final Result [facility] [address] [place] [address], [place] [phone] * XR CHEST PORTABLE (05/18/2025 11:01 AM CDT) Only the most recent of3 resultswithin the time period is included. Anatomical Region Laterality Modality Chest Radiographic Vivi ging 05/18/2025 12:3 0 PM CDT Impressions 05/18/2025 12:38 PM CDT Impression: No convincing acute, active cardiopulmonary radiographic finding Ordered By: MERRY HASKINS Interpreted By: Gary Clark MD, 05/18/2025 12:30 PM Narrative 05/18/2025 12:38 PM CDT [place] [address] Examination: Chest x-ray 1 view Exam date/time: 05/18/2025 10:38 AM Reason For Exam: 85 male. Wheezing Comparison: CTA chest 05/26/2025. Chest x-ray 05/15/2025 Technique: Portable AP upright view of the chest Findings: Stable mild cardiomegaly. Normally positioned trachea. Elongated thoracic aorta. Hilar and mediastinal contours are within normal limits. Asymmetric mild prominence of bronchovascular markings in the right lung may be due to crowding and mild volume loss compared to the left. No confluent consolidation, sizable effusion on this view Unremarkable upper abdomen Procedure Note Gary Clark MD - 05/18/[address] [address] Examination: Chest x-ray 1 view Exam date/time: 05/18/2025 10:38 AM Reason For Exam: 85 male. Wheezing Comparison: CTA chest 05/26/2025. Chest x-ray 05/15/2025 Technique: Portable AP upright view of the chest Findings: Stable mild cardiomegaly. Normally positioned trachea. Elongatedthoracic aorta. Hilar and mediastinal contours are within normal limits.Asymmetric mild prominence of bronchovascular markings in the right lungmay be due to crowding and mild volume loss compared to the left. Noconfluent consolidation, sizable effusion on this view Unremarkable upper abdomen Impression: No convincing acute, active cardiopulmonary radiographic finding Ordered By: MERRY HASKINS Interpreted By: Gary Clark MD, 05/18/2025 12:30 PM Merry Haskins DO GENERAL IMAGING Final Res ult * (ABNORMAL) HEPATIC FUNCTION PANEL (05/18/2025 8:42 AM CDT) TOTAL PROTEIN S/P/B 6.8 6.4 - 8.2 G/DL 05/18/2025 9:27 AM CDT [facility] ALBUMIN S/P/B 2.4(L) 3.4 - 5.0 G/DL 05/18/2025 9:27 AM CDT [facility] BILIRUBIN TOTAL S/P/B 0.7 0.2 - 1.2 MG/DL 05/18/2025 9:27 AM CDT [facility] Comment: THIS ASSAY IS NOT RECOMMENDED FOR PATIENTS UNDERGOING TREATMENT WITH ELTROMBOPAG DUE TO THE POTENTIAL FOR FALSELY ELEVATED RESULTS. BILIRUBIN DIRECT S/P/B 0.2 0.0 - 0.20 MG/DL 05/18/2025 9:27 AM CDT [facility] BILIRUBIN INDIRECT S/P/B 0.5 0.0 - 0.9 MG/DL 05/18/2025 9:27 AM CDT [facility] ALKALINE PHOSPHATASE S/P/B 78 50 - 136 U/L 05/18/2025 9:27 AM CDT [facility] AST 28 15 - 37 U/L 05/18/2025 9:27 AM CDT [facility] ALT 23 16 - 60 U/L 05/18/2025 9:27 AM CDT [facility] A/G RATIO 0.5(L) 1.0 - 2.0 RATIO 05/18/2025 9:27 AM CDT [facility] 05/18/2025 8:42 AM CDT us Merry Rubi Jozef DO LABORATORY Final Res ult [facility] [address] [place] [address], [place] [phone] * (ABNORMAL) COMPREHENSIVE METABOLIC PANEL (05/17/2025 5:50 AM CDT) Only the most recent of5 resultswithin the time period is included. [facility] GLUCOSE 131(H) 70 - 99 MG/DL 05/17/2025 6:49 AM CDT [facility] BUN 12 7 - 18 MG/DL 05/17/2025 6:49 AM CDT [facility] CREATININE S/P/B 1.00 0.7 - 1.3 MG/DL 05/17/2025 6:49 AM CDT [facility] SODIUM S/P/B 142 136 - 145 MMOL/L 05/17/2025 6:49 AM CDT [facility] POTASSIUM S/P/B 3.5 3.5 - 5.1 MMOL/L 05/17/2025 6:49 AM CDT [facility] CHLORIDE S/P/B 112 97 - 115 MMOL/L 05/17/2025 6:49 AM CDT [facility] CO2 24.0 21 - 32 MMOL/L 05/17/2025 6:49 AM CDT [facility] CALCIUM S/P/B 8.3(L) 8.5 - 10.1 MG/DL 05/17/2025 6:49 AM CDT [facility] BILIRUBIN TOTAL S/P/B 0.8 0.2 - 1.2 MG/DL 05/17/2025 6:49 AM CDT [facility] Comment: THIS ASSAY IS NOT RECOMMENDED FOR PATIENTS UNDERGOING TREATMENT WITH ELTROMBOPAG DUE TO THE POTENTIAL FOR FALSELY ELEVATED RESULTS. TOTAL PROTEIN S/P/B 6.6 6.4 - 8.2 G/DL 05/17/2025 6:49 AM CDT [facility] ALBUMIN S/P/B 2.5(L) 3.4 - 5.0 G/DL 05/17/2025 6:49 AM CDT [facility] AST 45(H) 15 - 37 U/L 05/17/2025 6:49 AM CDT [facility] ALT 25 16 - 60 U/L 05/17/2025 6:49 AM T [facility] ALKALINE PHOSPHATASE S/P/B 83 50 - 136 U/L 05/17/2025 6:49 AM T [facility] ANION GAP 6.0 2 - 10 MMOL/L 05/17/2025 6:49 AM T [facility] BUN CREATININE RATIO 12.0 6 - 26 05/17/2025 6:49 AM T [facility] A/G RATIO 0.6(L) 1.0 - 2.0 RATIO 05/17/2025 6:49 AM T [facility] GFR ESTIMATE 74(L) >90 ML/MIN/1.7 3 M2 05/17/2025 6:49 AM T [facility] Comment: NOTE: eGFR is not calculated for patients <18 years of age or gender unknown. This is an estimated GFR calculation using the new CKD EPI creatinine equation without race and so does not require a correction factor for race. This estimated GFR should not be used for calculating drug doses. 05/17/2025 5:50 AM CDT us Calin Chavez DO LABORATORY Final Result [facility] [address] [place] [address], [place] [phone] * MAGNESIUM (05/17/2025 5:50 AM CDT) Only the most recent of5 resultswithin the time period is included. MAGNESIUM 1.9 1.8 - 2.4 MG/DL 05/17/2025 6:49 AM CDT [facility] 05/17/2025 5:50 AM CDT Calin Chavez DO LABORATORY Final Result [facility] [address] [place] [address], * ECG 12 lead (05/16/2025 9:35 PM CDT) Only the most recent of5 resultswithin the time period is included. 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: : 1940 Requested By: MERRY HASKINS Order Number: [id number] Reading MD: Royce Wade Measurements Intervals [place] Rate: 91 P: 42 NC: 116 QRS: -9 QRSD: 81 T: -1 QT: 368 QTc: 453 Interpretive Statements SINUS RHYTHM WITH SHORT NC INTERVAL WITH OCCASIONAL SUPRAVENTRICULAR PREMATURE COMPLEXES INFERIOR MYOCARDIAL INFARCTION , PROBABLY OLD [40+ ms Q WAVE AND/OR ST/T ABNORMALITY IN II/aVF] nonspecific stt abnormality Compared to ECG 05/16/2025 02:32:51 Short NC interval now present Myocardial infarct finding now present T-wave abnormality no longer present Prolonged QT interval no longer present Procedure Note Royce Wade MD - 05/18/[address] Test Date: 2025-05-16 Pat Name: DANK HARPER Department: 40 Room: [facility] Gender: Male Senior Product Manager: : 1940 Requested By: MERRY HASKINS Order Number: [id number] Reading MD: Royce Wade Measurements Intervals [place] Rate: 91 P: 42 NC: 116 QRS: -9 QRSD: 81 T: -1 QT: 368 QTc: 453 Interpretive Statements SINUS RHYTHM WITH SHORT NC INTERVAL WITH OCCASIONAL SUPRAVENTRICULAR PREMATURE COMPLEXES INFERIOR MYOCARDIAL INFARCTION , PROBABLY OLD [40+ ms Q WAVE AND/OR ST/T ABNORMALITY IN II/aVF] nonspecific stt abnormality Compared to ECG 05/16/2025 02:32:51 Short NC interval now present Myocardial infarct finding now present T-wave abnormality no longer present Prolonged QT interval no longer present us Merry Haskins DO ECG ORDERABLES Final Res ult [facility] * TROPONIN, QUANT (05/16/2025 9:29 PM CDT) Only the most recent of6 resultswithin the time period is included. TROPONIN I HIGH SENSITIVITY 61 <79 ng/L 05/16/2025 10:12 PM CDT [facility] Comment: HIGH DOSES OF BIOTIN, TROPONIN-SPECIFIC AUTOANTIBODIES, AND ANTIBODY THERAPY CONTAINING HAMA MAY INTERFERE WITH THIS TEST RESULT. CORRELATION TO CLINICAL HISTORY AND PRESENTATION RECOMMENDED. 05/16/2025 9:29 PM CDT us Stanley Singh MD LABORATORY Final Result [facility] [address] [place] [address], * [place] ABD LIMITED (05/16/2025 10:19 AM CDT) Anatomical Region Laterality Modality Abdomen Ultrasound 05/16/2025 10:3 2 AM CDT Impressions 05/16/2025 5:05 PM CDT IMPRESSION: 1. Irregular appearance of the gallbladder with heterogeneity of the gallbladder wall along side shadowing calculi, biliary sludge, prominent wall, and positive sonographic Plascencia's sign. While there is no overt gallbladder distention, findings are concerning for but not definitive for some degree of acute on chronic cholecystitis. Recommend hepatobiliary scintigraphy for more complete evaluation. Consider surgical consult. 2. An approximately 1.4 cm mass at the superior pole of the right kidney which was seen on same day CT is not well characterized on this examination due to significant patient tenderness along the right upper quadrant. This remains indeterminate. Could consider renal mass protocol MRI for more definitive characterization if clinically warranted (this would require repeated series of breath holding and alternatively renal mass protocol CT could be considered if it is desired). Preliminary: Hakeem Patten MD05/16/2025 10:46 AM The attending radiologist has reviewed the image(s) and agrees with the content of this report. Referred By: CALIN CHAVEZ Interpreted By: Hakeem Patten MD, 05/16/2025 10:32 AM Narrative 05/16/2025 5:[address] [facility] [address] [place], [place] [address] [facility] [address] [place], [place] [address] EXAMINATION: US ABD LIMITED DATE: 05/16/2025 9:17 AM HISTORY: 85 years Male. Evaluate gallbladder COMPARISON: Same day CT abdomen. TECHNIQUE: An ultrasound examination of was performed to assess grayscale appearance, color Doppler flow characteristics, and spectral waveform analysis. FINDINGS: Pancreas: The limited visualized portions of the proximal pancreas are grossly unremarkable. Most of the pancreas is not well seen due to overlying bowel gas. Liver: Normal in size measuring approximately 13.3 cm. Normal liver parenchymal echogenicity and echotexture. No discrete hepatic mass is seen. Main portal vein is patent with appropriate direction of flow. Hepatic veins are patent. Common bile duct measures 6 mm. Kidney: The patient's previously noted mass along the superior pole of the right kidney is only partially visualized on a few images and overall suboptimally assessed due to significant patient discomfort along the right upper quadrant region. No hydronephrosis. A simple benign cyst is noted at the inferior pole of the right kidney. Gallbladder: There is redemonstration of irregular gallbladder carlson which appears somewhat heterogeneous with some areas of undulation/thickening. There is biliary sludge. There are shadowing calculi. Although the measured portion of the gallbladder wall at the fundus appears to be within normal limits measuring approximately 0.1 cm, there are areas more proximally along the gallbladder body which may be thickened up to approximately 6 mm. Sonographic Plascencia sign is reportedly positive. Procedure Note Devonte Wolf MD - 05/16/[address] [address] EXAMINATION: US ABD LIMITED DATE: 05/16/2025 9:17 AM HISTORY: 85 years Male. Evaluate gallbladder COMPARISON: Same day CT abdomen. TECHNIQUE: An ultrasound examination of was performed to assess grayscaleappearance, color Doppler flow characteristics, and spectral waveformanalysis. FINDINGS: Pancreas: The limited visualized portions of the proximal pancreas aregrossly unremarkable. Most of the pancreas is not well seen due tooverlying bowel gas. Liver: Normal in size measuring approximately 13.3 cm. Normal liverparenchymal echogenicity and echotexture. No discrete hepatic mass isseen. Main portal vein is patent with appropriate direction of flow.Hepatic veins are patent. Common bile duct measures 6 mm. Kidney: The patient's previously noted mass along the superior pole of theright kidney is only partially visualized on a few images and overallsuboptimally assessed due to significant patient discomfort along theright upper quadrant region. No hydronephrosis. A simple benign cyst isnoted at the inferior pole of the right kidney. Gallbladder: There is redemonstration of irregular gallbladder carlson whichappears somewhat heterogeneous with some areas of undulation/thickening.There is biliary sludge. There are shadowing calculi. Although themeasured portion of the gallbladder wall at the fundus appears to bewithin normal limits measuring approximately 0.1 cm, there are areas moreproximally along the gallbladder body which may be thickened up toapproximately 6 mm. Sonographic Plascencia sign is reportedly positive. IMPRESSION: 1. Irregular appearance of the gallbladder with heterogeneity of thegallbladder wall along side shadowing calculi, biliary sludge, prominentwall, and positive sonographic Plascencia's sign. While there is no overtgallbladder distention, findings are concerning for but not definitive forsome degree of acute on chronic cholecystitis. Recommend hepatobiliaryscintigraphy for more complete evaluation. Consider surgical consult. 2. An approximately 1.4 cm mass at the superior pole of the right kidneywhich was seen on same day CT is not well characterized on thisexamination due to significant patient tenderness along the right upperquadrant. This remains indeterminate. Could consider renal mass protocolMRI for more definitive characterization if clinically warranted (thiswould require repeated series of breath holding and alternatively renalmass protocol CT could be considered if it is desired). Preliminary: Hakeem Patten MD05/16/2025 10:46 AM The attending radiologist has reviewed the image(s) and agrees with thecontent of this report. Referred By: CALIN CHAVEZ Interpreted By: Hakeem Patten MD, 05/16/2025 10:32 AM us Calin Chavez DO ULTRASOUND Final Result * HEMOGLOBIN, GLYCATED (05/16/2025 5:17 AM CDT) HGB A1C 5.4 <5.7 % 05/16/2025 8:42 AM CDT [facility] Comment: ADA GUIDELINES 2010 5.7 TO 6.4% INCREASED RISK OF DIABETES > OR = 6.5% CONSISTENT WITH DIABETES ESTIMATED AVG GLUCOSE 108 mg/dL 05/16/2025 8:42 AM CDT [facility] 05/16/2025 5:17 AM CDT Brent Spaulding MD LABORATORY Final Resul t Performing Organization Address [facility] de Phone Number [facility] [address] [place] [address], * PROTHROMBIN TIME, VENOUS (05/16/2025 5:17 AM CDT) PROTIME 12.7 10.2 - 12.9 SEC 05/16/2025 5:58 AM CDT [facility] INR 1.1 05/16/2025 5:58 AM CDT [facility] Comment: Recommended INR Therapeutic Goals: 2.0-3.0 Routine Therapy 2.5-3.5 Mechanical Prosthetic Valves (High Risk) 05/16/2025 5:17 AM CDT Brent pSaulding MD LABORATORY Final Resul t Performing Organization Address [facility] de Phone Number [facility] [address] [place] [address], * THYROID STIM HORMONE, TSH (05/16/2025 5:17 AM CDT) TSH 0.462 0.358 - 3.74 uIU/ML 05/16/2025 6:22 AM CDT [facility] Comment: HIGH DOSES OF BIOTIN MAY INTERFERE WITH THIS TEST RESULT. CORRELATION TO CLINICAL HISTORY AND PRESENTATION RECOMMENDED. 05/16/2025 5:17 AM CDT us Brent Spaulding MD LABORATORY Final Resul t [facility] [address] [place] [address], * Critical Care (05/16/2025 1:03 AM CDT) Farzana Humphrey DO - 05/16/2025 1:03 AM CDT Farzana Gaming DO 05/16/2025 6:13 AM Critical Care Performed by: Farzana Gaming DO Authorized by: Brent Spaulding MD Critical care provider statement: Critical care time (minutes): 35 Critical care was necessary to treat or prevent imminent or life-threatening deterioration of the following conditions: Sepsis Critical care was time spent personally by me on the following activities: Blood draw for specimens, development of treatment plan with patient or surrogate, discussions with consultants, evaluation of patient's response to treatment, examination of patient, obtaining history from patient or surrogate, ordering and performing treatments and interventions, ordering and review of laboratory studies, ordering and review of radiographic studies, pulse oximetry, re-evaluation of patient's condition and review of old charts Care discussed with: admitting provider Brent Spaulding MD PROCEDURE/MINOR SURGICAL OR DERABLES Final Result * CTA CHEST+CT ABD+PEL W CON (05/16/2025 12:29 AM CDT) Only the most recent of2 resultswithin the time period is included. Anatomical Region Laterality Modality Abdomen, Chest Computed Tomogra phy 05/16/2025 12:3 7 AM CDT Impressions 05/16/2025 12:48 AM CDT Impression: 1. No pulmonary embolism identified. 2. 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 3. Coronary artery calcifications. 4. Diffusely abnormal appearance of the gallbladder with wall thickening and adjacent hazy fat stranding and probable multiple peripherally calcified intraluminal stones. This appearance is similar to the comparison exam from the first of this month and has slightly worsened in appearance since December 2023. This may represent underlying chronic cholecystitis although a neoplasm cannot be definitively excluded. 5. An indeterminate exophytic cystic lesion is seen involving the upper pole the right kidney measuring 2 cm, increased in size since December 2023. Further evaluation with outpatient nonemergent contrast-enhanced MRI of the abdomen is recommended. 6. Other chronic and nonemergent findings as above. Referred By: Interpreted By: Calin Cruz MD, 05/16/2025 12:37 AM Narrative 05/16/2025 12:48 AM CDT [address] [address] Examination: CTA CHEST+CT ABD+PEL W CON Clinical Indication: Chest and abdominal pain. Comparison: CT 05/07/2025 and 12/17/2023. Technique: Chest CT angiography with IV contrast. Standard and MIP images were reviewed. Next, portal venous phase images of the abdomen and pelvis were obtained. IV contrast: 100 mL of Isovue-370. Dose reduction: This CT exam was performed using one or more of the following dose-reduction techniques: Automated exposure control, adjustment of the mA and/or kV according to patient size, and/or use of iterative reconstruction technique. Findings: PULMONARY ARTERIES: Exam quality: Satisfactory. Pulmonary embolism: No acute or chronic pulmonary embolism. Central pulmonary arteries: Normal caliber. HEART: Heart: No right heart strain. Normal size. Aorta: Atherosclerotic disease of the thoracic aorta is redemonstrated. Fusiform dilation of the proximal descending thoracic aorta is again noted measuring approximately 3.5 cm, similar to prior. Coronary arteries: Coronary artery calcifications are present. Pericardium: Normal. No effusion, thickening, or calcification. MEDIASTINUM: Support tubes and lines: None. Base of neck/thyroid: Normal. Lymph nodes: No supraclavicular, axillary, internal mammary, mediastinal, or hilar adenopathy. LUNGS AND PLEURA: Lungs: Dependent atelectasis. Pleura: No effusion, thickening, or calcification. UPPER ABDOMEN Liver and bile ducts: No focal liver lesion. Portal vein and hepatic veins are patent. No biliary dilatation. Gallbladder: Diffusely abnormal appearance of the gallbladder with wall thickening and adjacent hazy fat stranding and probable multiple peripherally calcified intraluminal stones. This appearance is similar to the comparison exam from the first of this month and has slightly worsened in appearance since December 2023. This may represent underlying chronic cholecystitis although a neoplasm cannot be definitively excluded. Pancreas: Unremarkable. Spleen: Normal. RETROPERITONEUM Adrenals: Normal. Kidneys: Enhance symmetrically with no findings of hydronephrosis. An indeterminate exophytic cystic lesion is seen involving the upper pole the right kidney measuring 2 cm (series 10 image 38), increased in size since December 2023. Additional exophytic cyst is seen involving the lower pole of the right kidney, similar to previous studies. Lymph nodes: No lymphadenopathy in the abdomen or pelvis. BOWEL AND PERITONEUM Bowel: No acute small bowel obstruction. The appendix is normal. The large bowel is decompressed. Free air or fluid: None. VASCULATURE Atherosclerotic disease of the abdominal aorta. Aortobiiliac endograft redemonstrated, appearing patent. PELVIS No abnormality. BONES/SOFT TISSUES Clinical spondylosis. 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 Procedure Note Calin Cruz MD - 05/16/[address] [address] Examination: CTA CHEST+CT ABD+PEL W CON Clinical Indication: Chest and abdominal pain. Comparison: CT 05/07/2025 and 12/17/2023. Technique: Chest CT angiography with IV contrast. Standard and MIP images werereviewed. Next, portal venous phase images of the abdomen and pelvis wereobtained. IV contrast: 100 mL of Isovue-370. Dose reduction: This CT exam was performed using one or more of thefollowing dose-reduction techniques: Automated exposure control,adjustment of the mA and/or kV according to patient size, and/or use ofiterative reconstruction technique. Findings: PULMONARY ARTERIES: Exam quality: Satisfactory. Pulmonary embolism: No acute or chronic pulmonary embolism. Central pulmonary arteries: Normal caliber. HEART: Heart: No right heart strain. Normal size. Aorta: Atherosclerotic disease of the thoracic aorta is redemonstrated.Fusiform dilation of the proximal descending thoracic aorta is again notedmeasuring approximately 3.5 cm, similar to prior. Coronary arteries: Coronary artery calcifications are present. Pericardium: Normal. No effusion, thickening, or calcification. MEDIASTINUM: Support tubes and lines: None. Base of neck/thyroid: Normal. Lymph nodes: No supraclavicular, axillary, internal mammary, mediastinal,or hilar adenopathy. LUNGS AND PLEURA: Lungs: Dependent atelectasis. Pleura: No effusion, thickening, or calcification. UPPER ABDOMEN Liver and bile ducts: No focal liver lesion. Portal vein and hepaticveins are patent. No biliary dilatation. Gallbladder: Diffusely abnormal appearance of the gallbladder with wallthickening and adjacent hazy fat stranding and probable multipleperipherally calcified intraluminal stones. This appearance is similar tothe comparison exam from the first of this month and has slightly worsenedin appearance since December 2023. This may represent underlying chroniccholecystitis although a neoplasm cannot be definitively excluded. Pancreas: Unremarkable. Spleen: Normal. RETROPERITONEUM Adrenals: Normal. Kidneys: Enhance symmetrically with no findings of hydronephrosis. Anindeterminate exophytic cystic lesion is seen involving the upper pole theright kidney measuring 2 cm (series 10 image 38), increased in size sinceDecember 2023. Additional exophytic cyst is seen involving the lower pole ofthe right kidney, similar to previous studies. Lymph nodes: No lymphadenopathy in the abdomen or pelvis. BOWEL AND PERITONEUM Bowel: No acute small bowel obstruction. The appendix is normal. The largebowel is decompressed. Free air or fluid: None. VASCULATURE Atherosclerotic disease of the abdominal aorta. Aortobiiliac endograftredemonstrated, appearing patent. PELVIS No abnormality. BONES/SOFT TISSUES Clinical spondylosis. Bilateral L5 pars defects with grade 1anterolisthesis of L5 on S1. Impression: 1. No pulmonary embolism identified. 2. Atherosclerotic disease of the thoracic aorta with fusiform dilationof the proximal descending thoracic aorta measuring 3.5 cm, similar toprior. 3. Coronary artery calcifications. 4. Diffusely abnormal appearance of the gallbladder with wall thickeningand adjacent hazy fat stranding and probable multiple peripherallycalcified intraluminal stones. This appearance is similar to thecomparison exam from the first of this month and has slightly worsened inappearance since December 2023. This may represent underlying chroniccholecystitis although a neoplasm cannot be definitively excluded. 5. An indeterminate exophytic cystic lesion is seen involving the upperpole the right kidney measuring 2 cm, increased in size since December 2023.Further evaluation with outpatient nonemergent contrast-enhanced MRI ofthe abdomen is recommended. 6. Other chronic and nonemergent findings as above. Referred By: Interpreted By: Calin Cruz MD, 05/16/2025 12:37 AM Farzana Gaming DO CT Final Result * Pathology (05/16/2025 12:00 AM CDT) PATHOLOGY [facility] Department of Laboratory Medicine [address] [place] [address] , extension [phone] Pathology Report Surgical Pathology Report Name: DANK HARPER Specimen #: [id number] Age: 5 1940 (Age: 85) Location: [facility] Sex: M Procedure Date: 05/16/2025 Hospital #: [id number] Date Received: 05/17/2025 Date Reported: 05/18/2025 Provider: CALIN CHAVEZ DO Source: Gallbladder Clinical History: Cholecystitis FINAL DIAGNOSIS: Gallbladder, cholecystectomy: -Acute gangrenous cholecystitis -Cholelithiasis Gross Description: Received in formalin, labeled with the patient's label and gallbladder, is a 10.2 x 4.4 x 2.6 cm disrupted gallbladder with an attached cystic duct. The cystic duct is 0.5 cm in length and 0.4 cm in diameter. The serosal surface is pink-montiel, dull, and roughened. There are multiple defects ranging from 0.9 to 2.3 cm in greatest dimension. The gallbladder contents include a 6.7 x 5.0 x 2.7 cm aggregate of yellow-montiel to green-montiel irregularly-shaped stones and dark green bile. The mucosa is green-montiel and disrupted. The average wall thickness is 0.3 cm. A periductal lymph node is not identified. There are no grossly identifiable masses or lesions. The cystic margin and veterans contact representative sections of the gallbladder wall are submitted in cassette 1. Gross examination (when applicable) was performed at [facility], [address] [place] [address]. This case was interpreted and signed out at [facility], [address] [facility], [facility] [address]. Electronically Signed Out JOSSUE MARS MD [facility] TISSUE GALLBLADDER STRUCTURE / Unknown 05/16/2025 8:45 PM CDT Calin Chavez DO PATHOLOGY/CYTOLOGY ORDERABLES Final Result [facility] [address] [place] [address], [place] [phone] [id number] * LIPASE (05/15/2025 11:12 PM CDT) LIPASE 30 13 - 75 UNITS/L 05/15/2025 11:54 PM CDT [facility] 05/15/2025 11:1 2 PM CDT Farzana Gaming DO LABORATORY Final Result [facility] [address] [place] [address], [place] [phone] * (ABNORMAL) PRO-BRAIN NATRIURETIC PEPTIDE (05/15/2025 11:10 PM CDT) PRO-B TYPE NATRIURETIC PEPTIDE 2,086(H) <450 PG/ML 05/16/2025 12:52 AM CDT [facility] Comment: CUT POINTS ESTABLISHED BY [employer] ON NT PROBNP (ICON) STUDY (2006). AGE INDEPENDENT: <300 PG/ML HAS A 99% NEGATIVE PREDICTIVE VALUE FOR EXCLUDING ACUTE CHF <50 YEARS: >450 PG/ML IS CONSISTENT WITH ACUTE CHF 50-75 YEARS: >900 PG/ML IS CONSISTENT WITH ACUTE CHF >75 YEARS: >1800 PG/ML IS CONSISTENT WITH ACUTE CHF IN PATIENTS WITH RENAL INSUFFICIENCY (GFR <60), >1200 PG/ML YIELDS A DIAGNOSTIC SENSITIVITY AND SPECIFICITY OF 89% AND 72% FOR ACUTE CHF. 05/15/2025 11:1 0 PM CDT Farzana Gaming DO LABORATORY Final Result [facility] [address] [place] [address], [place] [phone] * CT SHOULDER RT WO CON (02/22/2025 12:19 AM CDT) Anatomical Region Laterality Modality Shoulder Computed Tomogra phy 02/22/2025 12:1 6 AM CDT Impressions 02/22/2025 12:21 AM CDT IMPRESSION: 1. Acute comminuted fracture of the right humeral head and neck. 2. Partially included 3 mm subpleural nodule within the right middle lobe. Fleischner guidelines recommend no routine follow-up for nodules of this size in patient's low risk for lung cancer and an optional follow-up CT of the chest in 12 months for patient's that are high risk for lung cancer. Referred By: Interpreted By: Calin Cruz MD, 02/22/2025 12:16 AM Narrative 02/22/2025 12:[address] [facility] [address] [place], [place] [address] Examination: CT SHOULDER RT WO CON Exam time: 02/21/2025 11:58 PM Clinical history: RIGHT SHOULDER INJURY Comparison: Radiographs 02/21/2025. Technique: Axial, coronal and sagittal CT images of the right shoulder were obtained without contrast. A radiation dose lowering technique was used for this procedure, which may include, but is not limited to, dose reduction technique, automated exposure control, the use of iterative reconstruction, ALARA (As Low As Reasonably Achievable) techniques, and Image Gently techniques. Findings: Acute comminuted fracture involving the right humeral head and neck to the comparison radiographs. Minimal displacement of fracture fragments noted. No evidence of glenohumeral dislocation. No other fractures are seen. The AC joint demonstrates mild to moderate arthritic changes. No destructive bone process noted. There is edema within the soft tissues about the right shoulder. No significant shoulder joint effusion. Atelectatic changes seen within the visualized right lung. Partially included 3 mm subpleural nodule within the right middle lobe. Procedure Note Calin Cruz MD - 02/22/[address] [address] Examination: CT SHOULDER RT WO CON Exam time: 02/21/2025 11:58 PM Clinical history: RIGHT SHOULDER INJURY Comparison: Radiographs 02/21/2025. Technique: Axial, coronal and sagittal CT images of the right shoulderwere obtained without contrast. A radiation dose lowering technique wasused for this procedure, which may include, but is not limited to, dosereduction technique, automated exposure control, the use of iterativereconstruction, ALARA (As Low As Reasonably Achievable) techniques, andImage Gently techniques. Findings: Acute comminuted fracture involving the right humeral head and neck to thecomparison radiographs. Minimal displacement of fracture fragments noted.No evidence of glenohumeral dislocation. No other fractures are seen. TheAC joint demonstrates mild to moderate arthritic changes. No destructivebone process noted. There is edema within the soft tissues about the rightshoulder. No significant shoulder joint effusion. Atelectatic changes seenwithin the visualized right lung. Partially included 3 mm subpleuralnodule within the right middle lobe. IMPRESSION: 1. Acute comminuted fracture of the right humeral head and neck. 2. Partially included 3 mm subpleural nodule within the right middlelobe. Fleischner guidelines recommend no routine follow-up for nodules ofthis size in patient's low risk for lung cancer and an optional follow-upCT of the chest in 12 months for patient's that are high risk for lungcancer. Referred By: Interpreted By: Calin Cruz MD, 02/22/2025 12:16 AM Pritesh Mary MD,PHD CT Final Resu lt * (ABNORMAL) LIPID PANEL (02/05/2024 10:44 AM CDT) CHOLESTEROL 96 <200 MG/DL 02/05/2024 11:38 AM CDT [facility] TRIGLYCERIDES 91 <150 MG/DL 02/05/2024 11:38 AM CDT [facility] HDL 31(L) >40.0 MG/DL 02/05/2024 11:38 AM CDT [facility] LDL (CALCULATED) 47 <100 MG/DL 02/05/20 11:38 AM CDT [facility] NON HDL CHOLESTEROL 65 <130 MG/DL 02/04 11:38 AM CDT [facility] CHOL/HDL RATIO 3.1 0.0 - 4.5 02/05/2024 11:38 AM CDT [facility] VLDL CALCULATION 18 5 - 55 MG/DL 02/05/2024 11:38 AM CDT [facility] LIPID INTERPRETATION 02/05/2024 11:38 AM CDT [facility] Comment: NIH CONCENSUS REPORT RECOMMENDATIONS: ADULT CHILD LOW RISK: CHOLESTEROL <200 <170 TRIGLYCERIDE <150 --- HDL >=60 --- LDL <100 <110 BORDERLINE: CHOLESTEROL 200-239 170-199 TRIGLYCERIDE 150-199 --- HDL 40-59 --- LDL 100-159 110-129 HIGH RISK: CHOLESTEROL >=240 >=200 TRIGLYCERIDE >=200 --- HDL <40 --- LDL >=160 >=130 02/05/2024 10:4 4 AM CDT Na Agarwal NP LABORATORY Final Res ult [facility] [address] [place], [place] [address] [phone] from Last 3 Months or Most Recently Relevant to Health Maintenance Insurance [employer] Advance Directives Documents on File Type Date Recorded Patient First Press Operator Expl anation Power of Assembler Handbags 03/13/2025 2:42 PM * DNR (Latest Code Status on File) Date Activated Date Inactivated Comments 05/16/2025 2:22 AM 05/21/2025 3:58 PM * DNR Date Activated Date Inactivated Comments 02/22/2025 2:26 AM 02/23/2025 2:03 PM * DNR Date Activated Date Inactivated Comments 12/17/2023 2:59 AM 12/19/2023 5:50 PM * Full Code Date Activated Date Inactivated Comments 12/17/2023 2:02 AM 12/17/2023 2:59 AM * DNR Date Activated Date Inactivated Comments 08/01/2023 10:53 AM 08/02/2023 3:54 PM Care Teams Natural Sciences Professor Relationship Specialty Start Date End Date Na Agarwal NP [address] [facility] [address] [place] [address] PCP - General NURSE PRACTITIONER 06/06/20 Oskar Renee MD [place] [id number] [place] [phone] [employer]ao Material Control Supervisor CARDIOVASCULAR DISEASE 10/19/17 Gala Agarwal, RN [address] [place], [place] [address] Gardener Florist (Ambulatory) REGISTERED NURSE 05/16/25
--- OUTSIDE RECORDS SUMMARY | 2025-05-25 21:18 | XMS_ITS | Clinical Summary ---
Author Organization [facility] Address [address] [facility] [place] [address] Care Team Providers Care Machine I Cutter Name Role Phone Harvey Justin DO Primary Care Provider [phone] Carol Ann Cannon MD Unavailable [phone] Source Comments [facility] [employer],non-owned Affiliates and Associated Physician Practices is amultiple site organization consisting of ambulatory clinics and hospital sitesin [place], [place], [place] and [place]. This disclosure is being madepursuant to the Care Everywhere program and may not contain all information available regarding this patient. Last updated 18.[facility] Allergies Active Allergy Reactions Criticality Noted Date Comments Aspirin 05/09/2010 Demerol 04/07/2010 Extract Of Poison Neena Rash Medium 08/18/2023 Penicillins 04/07/2010 Tylenol 04/07/2010 Medications * Be aware that medications may not be up to date on this document. Alwaysverify current medications with the patient. aspirin 325 MG tablet Take 1 Tab by mouth daily. 0 0 04/10/2010 Active lisinopril (PRINIVIL;ZESTR IL) 5 MG tablet Take 1 Tab by mouth daily. 30 0 04/10/2010 Active clopidogrel (PLAVIX) 75 MG tablet Take 1 Tab by mouth daily. 30 1 04/10/2010 Active HYDROmorphone (DILAUDID) 8 MG tablet Take 8 mg by mouth every 3 hours as needed. Active allopurinol (ZYLOPRIM) 100 MG tablet Take 100 mg by mouth once daily. Active Colchicine (COLCRYS PO) Take by mouth. Active ibuprofen (MOTRIN) 600 MG tablet Take 1 Tab by mouth every 6 hours as needed for Pain 20 Tab 0 06/04/2015 Active atorvastatin (Lipitor) 40 MG tablet Take 1 (one) tablet by mouth once daily 08/06/2023 Active Cyanocobalamin 2000 MCG Take 2,000 mcg by mouth once daily Active cyclobenzaprine (Flexeril) 5 MG tablet 08/04/2023 Active metoprolol tartrate IR (Lopressor) 25 MG tablet Take 1 (one) tablet by mouth 2 times daily 08/06/2023 Active prednisoLONE acetate (Pred Forte) 1 % ophthalmic suspension SHAKE LIQUID AND INSTILL 1 DROP IN LEFT EYE FOUR TIMES DAILY 05/18/2023 Active Active Problems Problem Noted Date Diagnosed Date Cervicalgia 12/28/2012 CAD (coronary artery disease) 04/08/2010 Overview (04/08/2010): Cath note 04/08/10 Lm ok 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 Gender Identity Not on file Sexual Orientation Not on file Last Filed Vital Signs Vital Sign Reading Time Taken Comments Blood Pressure 129/75 06/04/2015 3:45 PM CDT Pulse 68 06/04/2015 3:45 PM CDT Temperature 36.6 C (97.8 F) 06/04/2015 1:26 PM CDT Respiratory Rate 15 06/04/2015 3:45 PM CDT Oxygen Saturation 100% 06/04/2015 3:45 PM CDT Inhaled Oxygen Concentration - - Weight 72.6 kg (160 lb) 06/04/2015 1:26 PM CDT Height 165.1 cm (5' 5) 06/04/2015 1:26 PM CDT Body Mass Index 26.63 06/04/2015 1:26 PM CDT Plan of Treatment Health Maintenance Due Date Last Done Comments PNEUMOCOCCAL VACCINE 50+ (1 of 2 - PCV) 01/05/1960 ZOSTER VACCINE (1 of 2) 1991 Respiratory Syncytial Virus (RSV) Vaccine Pt: or over 60 yrs (1 - 1-dose 75+ series) 01/05/2016 DTAP/TDAP/TD VACCINES (2 - Tdap) 05/09/2020 05/09/20 10 DEPRESSION SCREENING 09/06/2024 MEDICARE AWV CALENDAR YEAR 2024 COVID-19 VACCINE (1 - 2023-2 5 season) 2025 INFLUENZA VACCINE (#1) 2025 HEPATITIS B VACCINE Aged Out No longe r eligible based on patient's age to complete this topic HIB VACCINE Aged Out No longer eligi ble based on patient's age to complete this topic HPV VACCINE Aged Out No longer eligi ble based on patient's age to complete this topic MENINGOCOCCAL (Group B) VACC INE SHARED DECISION-MAKING Aged Out No longer eligibl e based on patient's age to complete this topic MENINGOCOCCAL GROUPS A/C/Y/W VACCINE Aged Out No longer eligible b ased on patient's age to complete this topic Insurance MEDICARE [employer] MEDICARE ADV Advance Directives * Full Code (Latest Code Status on File) Date Activated Date Inactivated Comments 04/08/2010 2:10 PM 04/11/2010 12:24 AM * Full Code Date Activated Date Inactivated Comments 04/07/2010 8:12 PM 04/08/2010 2:10 PM Care Teams Machine I Cutter Relationship Specialty Start Date End Date Harvey Justin DO [address] [facility] [address] [place] [address] PCP - General 04/07/10 [place] [address] [facility] [address] [place] [address] Orthopedic Surgery 12/28/12
[2025-05-25 21:21] VITALS: PULSE 77
[2025-05-25 21:28] LABS: Hematocrit 34.7 % (42.0-52.0); Hemoglobin 11.5 g/dL (14.0-18.0); Immature Granulocyte Percent A 1.0 % (0-0.5); Lymphocytes Absolute Auto 1.90 K/mm3 (0.9-3.2); Mean Corpuscular HGB Conc 33.1 g/dl (32-36); Mean Corpuscular Hemoglobin 31.4 pg (26-34); Mean Corpuscular Volume 94.8 fl (80-100); Nucleated Red Blood Cells Absolute Auto 0.000 K/mm3 (0.0-0.012); Nucleated Red Blood Cells Perc 0.0 % (0.0-0.2); Platelet Count Result 292 k/mm3 (150-375); Red Blood Count 3.66 M/mm3 (4.6-6.20); White Blood Count 13.6 K/mm3 (4.5-10.0)
[2025-05-25] MEDS: ASPIRIN 81 MG CHEWABLE TABLET 324 MG PO (21:30)
[2025-05-25 21:46] LABS: INR 1.4; Prothrombin Time 16.5 Seconds (11.1-14.7)
[2025-05-25 21:49] LABS: Partial Thromboplastin Time 131.9 Seconds (22.3-36.8)
[2025-05-25 21:51] LABS: Alanine Aminotransferase 17 U/L (6-50); Albumin Level 3.0 g/dL (3.5-5.1); Alkaline Phosphatase 78 U/L (38-126); Anion Gap 9 mmol/L (4-12); Aspartate Amino Transferase 22 U/L (17-59); Bilirubin,Total 0.5 mg/dL (0.2-1.3); Blood Urea Nitrogen 13 mg/dL (9-20); Calcium 8.0 mg/dL (8.4-10.2); Carbon Dioxide 19 mmol/L (22-30); Chloride 111 mmol/L (98-107); Cholesterol 113 mg/dL (0-200); Estimated CRCL calculation 64 ml/min; Estimated Glomerular Filt Rate > 60; Glucose 125 mg/dL (65-110); HDL Direct 35 mg/dL; Potassium 3.5 mmol/L (3.4-5.0); Sodium 139 mmol/L (137-145); Total Protein 6.5 g/dL (6.3-8.2); Triglycerides 118 mg/dL (<150)
[2025-05-25 22:07] LABS: Troponin I 0.017 ng/mL (0.000-0.034)
[2025-05-25 22:27] LABS: Magnesium 1.8 mg/dL (1.6-2.3)
[2025-05-25 22:40] LABS: MRSA (PCR) NOT DETECTED (NOT DETECTE)
--- NOTE | 2025-05-25 23:41 | WPDHPUPDATE1 ---
History and Physical Update Update Date/Time: 05/25/25 23:41 History and Physical has been reviewed, including an updated exam of the patient. There are NO changes in the patient's condition. Risks, benefits, and alternatives have been discussed and questions answered. Patient agrees to proceed with procedure.
--- NOTE | 2025-05-25 23:42 | WPDMODSED ---
Moderate Sedation Note-Pt Data Patient Data Allergies Allergy/AdvReac Type Severity Reaction Status Date / Time meperidine (From Demerol) Allergy Unknown Unknown Verified 05/25/25 21:47 Current Medications: Active Medications Sodium Chloride (Normal Saline Iv) 1,000 mls @ 125 mls/hr IV CONT .Q8H ONE Stop: 05/26/25 07:39 Sedation/Anesthesia: No previous sedation/anesthesia problems (including family history). Mod Sed Physical Exam Physical Exam Pre Procedural Exam: Normal: Lungs, Heart Size and Heart Rate and Variation: Heart Rhythm (multiple ectopy) Hours since solid foods: 6 Hours since liquid intake: 6 Mallampati Classification: class II Internal Medicine - PN: Obj Da Vital Signs Vital Signs: Vital Signs - 24 hr 05/25/25 20:41 05/25/25 21:11 05/25/25 21:17 Temperature 36.8 C Pulse Rate 71 77 Respiratory Rate 25 H 34 H Blood Pressure 119/71 Pulse Oximetry 98 98 100 Oxygen Delivery Nasal Cannula Nasal Cannula Oxygen Flow Rate 5 2 05/25/25 21:17 05/25/25 21:21 Temperature Pulse Rate 87 77 Respiratory Rate 27 H Blood Pressure Pulse Oximetry 100 Oxygen Delivery Oxygen Flow Rate Meds/Results Medications: Active Medications Generic Name Dose Route Start Last Admin Trade Name Freq PRN Reason Stop Dose Admin Sodium Chloride 1,000 mls @ 125 mls/hr 05/25/25 23:40 Normal Saline Iv IV CONT 05/26/25 07:39 .Q8H ONE Labs 05/25/25 21:20 05/25/25 21:20 Labs: Laboratory Results - last 24 hr 05/25/25 05/25/25 21:20 21:21 WBC 13.6 H RBC 3.66 L Hgb 11.5 L Hct 34.7 L MCV 94.8 MCH 31.4 MCHC 33.1 RDW 13.7 Plt Count 292 MPV 10.4 Immature Gran % (Auto) 1.0 H Neut % (Auto) 74.9 H Lymph % (Auto) 14.0 L [place] % (Auto) 8.2 Eos % (Auto) 1.5 Baso % (Auto) 0.4 Lymph # (Auto) 1.90 [place] # (Auto) 1.1 H Eos # (Auto) 0.2 Baso # (Auto) 0.1 Abs Immat Gran (auto) 0.13 H Absolute Neuts (auto) 10.2 H Absolute Nucleated RBC 0.000 Nucleated RBC % 0.0 PT 16.5 H INR 1.4 APTT 131.9 H Sodium 139 Potassium 3.5 Chloride 111 H Carbon Dioxide 19 L Anion Gap 9 BUN 13 Creatinine 0.73 Estim Creat Clear Calc 64 Estimated GFR > 60 Glucose 125 H Calcium 8.0 L Phosphorus 3.1 Magnesium 1.8 Total Bilirubin 0.5 AST 22 ALT 17 Alkaline Phosphatase 78 Troponin I 0.017 Total Protein 6.5 Albumin 3.0 L Triglycerides 118 Cholesterol 113 LDL Cholesterol Direct 51 HDL Direct 35 Nasal MRSA (PCR) Not detected Blood Type A Positive Antibody Screen Negative ASA Classification/Sedation ASA Classification/Sedation ASA Class: II Emergent: Yes Risks: Risks, benefits and alternatives explained and patient/family accepted plan for sedation. Patient re-evaluated immediately prior to sedation.
--- NOTE | 2025-05-25 23:44 | PM.CNCAR ---
Assessment and Plan Assessment and plan (1) ST elevation (STEMI) myocardial infarction: Code(s): I21.3 - ST elevation (STEMI) myocardial infarction of unspecified site Status: Acute Plan 85-year-old man with coronary artery disease status post PCI to the OM and RCA, infrarenal abdominal aneurysm status post EVAR, hypertension, and hyperlipidemia presented with chest pain whose presentation is consistent with inferior STEMI Inferior STEMI -the risks/benefits/alternatives have been discussed with patient agreed to proceed for with cardiac catheterization with possible PCI and to remain full code for the duration of this hospitalization -aspirin loaded and should continue aspirin 81 mg p.o. daily indefinitely -will proceed with cardiac catheterization with possible PCI emergently -obtain transthoracic echocardiogram -atorvastatin 80 mg every evening -carvedilol 6.25mg PO BID History of Present Illness History of Present Illness Consult date/time: 05/25/25 23:44 Requesting physician: John Newton MD Consult reason: chest pain Reason For Visit: STEMI Narrative: 85-year-old man with coronary artery disease status post PCI to the OM and RCA, infrarenal abdominal aneurysm status post EVAR, hypertension, and hyperlipidemia presented with chest pain. Chest pain has been ongoing for the last 2 days. This evening the pain has gotten significantly worse and patient tolerated pain for 2 hours prior to calling EMS. States that he does not have any shortness of breath and is having active chest pain. Denies being on any blood thinning medication. Review of Systems Cardiovascular: Cardiovascular: Reports as per HPI Respiratory: Respiratory: Reports as per HPI Meds Home Medications and Allergies Allergies Allergy/AdvReac Type Severity Reaction Status Date / Time meperidine (From Demerol) Allergy Unknown Unknown Verified 05/25/25 21:47 Vital Signs Vital Signs - 24 hr 05/25/25 20:41 05/25/25 21:11 05/25/25 21:17 Temperature 36.8 C Pulse Rate 71 77 Respiratory Rate 25 H 34 H Blood Pressure 119/71 Pulse Oximetry 98 98 100 Oxygen Delivery Nasal Cannula Nasal Cannula Oxygen Flow Rate 5 2 05/25/25 21:17 05/25/25 21:21 Temperature Pulse Rate 87 77 Respiratory Rate 27 H Blood Pressure Pulse Oximetry 100 Oxygen Delivery Oxygen Flow Rate Exam Const: General: comfortable HENMT: Mouth: Yes dry mucous membranes Eyes: EOM: EOMs intact bilaterally Neck: Neck: no JVD Resp: Effort & Inspection: normal respiratory effort Auscultation: clear to auscultation bilaterally Cardio: Rate: regular rate Rhythm: regular rhythm Heart sounds: no murmurs Results Labs and Meds 05/25/25 21:20 05/25/25 21:20 Lab results: Cardiac Enzymes 05/25/25 Range/Units 21:20 AST 22 (17-59) U/L Troponin I 0.017 (0.000-0.034) ng/mL Coagulation 05/25/25 Range/Units 21:20 PT 16.5 H (11.1-14.7) Seconds APTT 131.9 H (22.3-36.8) Seconds Lipids 05/25/25 Range/Units 21:20 Triglycerides 118 (<150) mg/dL Cholesterol 113 (0-200) mg/dL CBC 05/25/25 Range/Units 21:20 WBC 13.6 H (4.5-10.0) K/mm3 RBC 3.66 L (4.6-6.20) M/mm3 Hgb 11.5 L (14.0-18.0) g/dL Hct 34.7 L (42.0-52.0) % Plt Count 292 (150-375) k/mm3 Lymph # (Auto) 1.90 (0.9-3.2) K/mm3 [place] # (Auto) 1.1 H (0.1-0.6) K/mm3 Eos # (Auto) 0.2 (0-0.3) K/mm3 Baso # (Auto) 0.1 (0.0-0.1) K/mm3 Comprehensive Metabolic Panel 05/25/25 Range/Units 21:20 Sodium 139 (137-145) mmol/L Potassium 3.5 (3.4-5.0) mmol/L Chloride 111 H (98-107) mmol/L Carbon Dioxide 19 L (22-30) mmol/L BUN 13 (9-20) mg/dL Creatinine 0.73 (0.7-1.3) mg/dL Glucose 125 H (65-110) mg/dL Calcium 8.0 L (8.4-10.2) mg/dL AST 22 (17-59) U/L ALT 17 (6-50) U/L Alkaline Phosphatase 78 (38-126) U/L Total Protein 6.5 (6.3-8.2) g/dL Albumin 3.0 L (3.5-5.1) g/dL Patient Weight 05/25/25 23:59 Weight 70 kg
--- NOTE | 2025-05-25 23:56 | P.PCNCC_ITS ---
Cardiac Cath Procedure Note Date of procedure:: 05/25/25 Performing physician:: CATHETERIZATION LABORATORY REPORT Procedure Date: 05/25/2025 Referring Physician: Dr. Newton Anesthesia: Versed and Fentanyl were ordered and given in my presence at 2151, procedure ended at 2330. Supervision of nurse, Eron Chappell monitored moderate sedation with 1mg Versed and 100mcg Fentanyl was provided for 101 minutes. Pre-op Diagnosis: Inferior ST-elevation IN Post-op Diagnosis: Inferior ST-elevation IN Procedure(s): Left heart catheterization with coronary angiography Percutaneous coronary intervention, initial vessel Percutaneous coronary intervention, additional vessel IVUS, initial vessel IVUS, additional vessel Moderate sedation Angio-Seal Access Site: Right common femoral artery Brief History and Clinical Indications: 85-year-old man with coronary artery disease status post PCI to the OM and RCA, infrarenal abdominal aneurysm status post EVAR, hypertension, and hyperlipidemia presented with chest pain whose presentation is consistent with inferior STEMI All risks, benefits and alternatives to left heart catheterization with or without percutaneous coronary intervention was discussed at length with the patient. Risk of complications including but not limited to bleeding, infection, arrhythmia, stroke, worsening kidney function, blood loss, groin hematoma, limb loss, emergency coronary artery bypass grafting, and even were discussed with the patient and all questions were answered. The patient understood and wished to proceed. Time out called, patient name, date of , medical record number, allergies, procedure performed, identify Avionics Mechanic, patient and staff member concurred with accurate data, procedure carried on. Findings: LEFT HEART CATHETERIZATION FINDINGS: 1. Left main: The left main coronary artery has 40-50% distal stenosis. 2. Left anterior descending: The LAD has diffuse 20-30% stenosis. The diagonal branches are free of angiographic high-grade stenosis. 3. Left circumflex: The left circumflex artery gives off and OM1 and OM2 branch. OM1 branch has a patent stent. OM2 has luminal irregularities. The distal left circumflex has a 99% stenosis. 4. Right coronary artery: The RCA is a large dominant vessel that has a pain stent in its proximal to mid body. The distal RCA has a 60-70% stenosis. The ostium of the RPDA has 70% stenosis and a mid RPDA has 99% stenosis with MAGUE 2 flow. The RPL branch is free of angiographic high-grade stenosis. 5. Left ventricle: A. End-diastolic pressure 10 mmHg. B. LV gram deferred. C. No significant gradient across aortic valve on catheter pullback. 6. Opening AO pressure 172/66 and closing AO pressure 138/65 RIGHT HEART CATHETERIZATION FINDINGS: Description of Procedure/PCI: Informed consent signed and placed in the chart. Patient transferred to hoisting laborer room. Prepped and draped in usual sterile fashion. 2% lidocaine in right groin area. Micropuncture needle used to access right common femoral artery with Seldinger technique under fluoroscopic guidance. J wire advanced, micropuncture cannula placed, and we noted and EVAR graft and thus chose to insert a 6 x 45cm Eran sheath as there are no other long shorter sheaths. During insertion of the sheath, patient's rhythm deteriorated into ventricular fibrillation for which he received defibrillation x1 with successful zoroastrian of sinus rhythm. We then used the JR4 guide catheter to engage the right coronary artery and after angiography, decided to proceed for with EBU 4 guide catheter to engage her left coronary artery. At this point, we decided to proceed for with PCI of the distal left circumflex. Heparin was used for anticoagulation (ACT maintained above 250) Patient loaded with heparin at 70 units/kg. A runthrough wire was negotiated into the distal left circumflex and the lesion was pre-dilated with a 1.25 x 15mm balloon followed by a 2.0 x 10mm balloon inflated to high atmosphere. IC cardene 300mcg and nitroglycerin 300mcg was delivered. A IVUS catheter was then inserted for measurements. A 2.25 x 18mm [place] DEXTER was overlapped distally by a 2.0 x 15mm [place] DEXTER deployed into the distal left circumflex with good angiographic results. Attention was then turned to the right coronary artery which was reengaged with a JR4 guide catheter. A runthrough wire was negotiated into the distal RPDA. IC cardene 200mcg and nitroglycerin 200mcg was delivered. The lesion was pre-dilated with a 1.5 x 10mm balloon followed by deployment of 2.0 x 18mm [place] DEXTER overlapped proximally into the ostium of the rPDA with a 2.25 x 12mm [place] DEXTER. IVUS was used to assess the stent showing slight malapposition in the proximal and ostial rPDA. This was post dilated with a 2.5 x 8mm NC to high leonardo with good angiographic results. During post dilation, patient's rhythm once again deteriorated into ventricular fibrillation for which you once again received defibrillation x1 with successful zoroastrian of sinus rhythm. All intracoronary equipment was then removed under fluoroscopy and final angiography demonstrated excellent results. Patient was started on amiodarone bolus followed by 1 milligram/minute x6 hour drip followed by 0.5 milligram/minute drip. A pigtail catheter was then inserted into the left ventricle for LVEDP measurement and gradient across the aortic valve. Right iliofemoral angiogram was performed showing adequate puncture site for vascular closure device. Angio-Seal was used for hemostasis. Assessment: Successful IVUS guided PCI to the distal LCx with 2.0 x 15mm [place] DEXTER deployed at 14atm and overlapped proximally with a 2.25 x 18mm [place] DEXTER deployed at 14atm with good angiographic results. Successful IVUS guided PCI to the elevator mechanic apprentice with 2.0 x 18mm [place] DEXTER deployed at 15atm and overlapped proximally with a 2.25 x 12mm [place] DEXTER; post dilated with a 2.5 x 8mm NC to high leonardo. Post Operative Condition: Stable No significant blood loss Disposition: ICU Plan: Aspirin 81mg p.o. daily indefinitely. Plavix 75 mg p.o. daily for a minimum of 1 year; however will be preferable for longer duration. Continue amiodarone drip at 1 mg/minute for 6 hours followed by 0.5 mg/minute to be re-evaluated tomorrow. Start carvedilol 6.25 mg p.o. b.i.d. and atorvastatin 80 mg every evening Obtain transthoracic echocardiogram Discussed with ICU team Dany Bennett Interventional Cardiology
--- NOTE | 2025-05-25 23:57 | ECG_ITS ---
Test Date: 2025-05-26 02:51:42 Measurements Intervals Center Rate: 64 P: 0 AK: 0 QRS: -10 QRSD: 77 T: -28 QT: 449 QTc: 463 Interpretive Statements SINUS RHYTHM WITH OCCASIONAL PVCS INFERIOR INFARCTION, RECENT NONSPECIFIC T-WAVE ABNORMALITY ABNORMAL ECG Compared to ECG 05/26/2025 00:02:04 NO SIGNIFICANT CHANGE Electronically Signed On 05-26-2025 08:48:36 CDT by Keith Lopez M.D.
[2025-05-26] VITALS (28 sets, daily range): BP systolic 110–157; BP diastolic 55–90; PULSE 56–77; RESP 7–118; TEMP 36.3–38; O2SAT 94–100
--- NOTE | 2025-05-26 | ECHO_ITS ---
Patient Info Name: Jose Alfredo Menjivar Age: 85 years : 1940 Gender: Male Ht: 68 in Wt: 159 lbs BSA: 1.87 m2 HR: 60 bpm BP: 153 / 88 mmHg Heart Rhythm: Sinus Rhythm Technical Quality: Good Exam Date: 05/26/2025 8:19 AM Patient Status: I Admit Date: 05/25/2025 Exam Type: CA echo dop color flow w con Complete two-dimensional, color flow and Doppler transthoracic echocardiogram is performed with contrast to opacify the left ventricle and to improve the deliniation of the left ventricle endocardial borders. Staff Referring Physician: Riley Mercado MD Aircraft Electronics Technical Officer: Cheyenne Hilario Attending Provider: Dany Bennett Contrast/Agitated Saline Contrast/Ag. Saline: Definity Amount: 2.00 ml Summary 1. Mild left ventricular. 2. Mild left ventricular enlargement with global hypokinesia, posterior akinesia ejection fraction 30-35%. 3. Dilated left atrium. 4. Mild aortic and mitral valve regurgitation. Left Ventricle Left ventricular chamber dimension is mildly enlarged. Left ventricular systolic function is moderately reduced, estimated at 35-40. The left ventricular diastolic function is grade I diastolic dysfunction. Right Ventricle Right ventricular chamber dimension is normal. Left Atria Left atrial chamber dimension is moderately enlarged. Right Atria Right atrial chamber dimension is normal. Aortic Valve The aortic valve is trileaflet. There is mild aortic valve regurgitation. Pulmonic Valve The pulmonic valve is normal. Mitral Valve The mitral valve has normal leaflets. There is mild mitral valve regurgitation. Tricuspid Valve The tricuspid valve leaflets are normal. Pericardium/Pleural The pericardium appears normal. Aorta The aortic root size at the sinus of Valsalva is normal. Left Ventricular Outflow Tract Name Value Normal LVOT 2D LVOT Diameter 2.0 cm LVOT Doppler LVOT Peak Velocity 93 cm/s LVOT Peak Gradient 3 mmHg LVOT Mean Gradient 2 mmHg LVOT VTI 22 cm LVOT Stroke Volume 72 ml LVOT CO 4.3 l/min LVOT CI 2.3 l/min/m2 Pulmonic Valve Name Value Normal RVOT Doppler RVOT Peak Velocity 70 cm/s RVOT Peak Gradient 2 mmHg PV Doppler PV Peak Velocity 78 cm/s PV Peak Gradient 2 mmHg Mitral Valve Name Value Normal MV Diastolic Function MV E Peak Velocity 70 cm/s MV A Peak Velocity 94 cm/s MV E/A 0.8 MV Decel Time (PW) 346 ms MV Annular TDI MV E/e' (Septal) 14.2 MV E/e' (Lateral) 10.3 MV E/e' (Average) 12.3 Aortic Valve Name Value Normal AV Doppler AV Peak Velocity 130 cm/s AV Peak Gradient 7 mmHg AV Area (Cont Eq Moises) 2.3 cm2 AV DI (Moises) 0.71 AV Regurgitation 2D LVOT Area 3.2 cm2 Ventricles Name Value Normal LV Dimensions 2D/MM IVS Diastolic Thickness (2D) 0.9 cm 0.6-1.0 LVID Diastole (2D) 4.8 cm 4.2-5.8 LVIW Diastolic Thickness (2D) 1.2 cm 0.6-1.0 LVID Systole (2D) 3.8 cm 2.5-4.0 LVOT Diameter 2.0 cm LV Mass (2D Cubed) 182.78 g 88.00-224.00 LV Mass Index (2D Cubed) 98 g/m2 49-115 Relative Wall Thickness (2D) 0.52 <=0.42 LV Fractional Shortening/Ejection Fraction 2D/MM LV Fractional Shortening (2D) 20 % 25-43 LV EF (2D Teichholz) 40 % LV Diastolic Volume (4C MOD) 123 ml LV EF (4C MOD) 40 % LV Diastolic Volume (2C MOD) 123 ml LV EF (2C MOD) 32 % LV Diastolic Volume (BP MOD) 125 ml 62-150 LV Diastolic Volume Index (BP MOD) 67 ml/m2 34-74 LV Systolic Volume (BP MOD) 79 ml 21-61 LV Systolic Volume Index (BP MOD) 42 ml/m2 11-31 LV EF (BP MOD) 37 % 52-72 LV Diastolic Length (4C) 8.1 cm LV Systolic Length (4C) 7.4 cm LV Stroke Volume (4C MOD) 49 ml Atria Name Value Normal LA Dimensions LA Volume (4C A-L) 49 ml LA Volume (BP A-L) 46 ml RA Dimensions RA Systolic [place] Length (4C) 6.2 cm 2.1-2.7 RA Area (4C) 15.0 cm2 <=18.0 Report Signatures
--- NOTE | 2025-05-26 00:21 | ADMGEN ---
This patient, Jose Alfredo Menjivar, was admitted to Intensive Care Unit-9. Patient/family oriented to hospital policies and general routines including ID bracelet, bed and alarms, visiting hours, pain management, procedures, bathroom and other care routines, personal items, smoking policy, room service/diet, and visiting hours. Information on how to activate the Rapid Response Team has been discussed. Patient/Family are encouraged to report perceived risks to care and to ask questions if they do not understand what they are told or what they should do.
[2025-05-26] MEDS: SODIUM CHLORIDE 0.9% IV 1,000 ML 125 ML IV CONT (00:36)
--- NOTE | 2025-05-26 02:46 | ECG_ITS ---
Test Date: 2025-05-26 00:02:04 Measurements Intervals [place] Rate: 69 P: 62 MO: 124 QRS: -11 QRSD: 74 T: 58 QT: 392 QTc: 420 Interpretive Statements SINUS RHYTHM WITH OCCASIONAL ECTOPIC PREMATURE COMPLEXES MILD INFERIOR ST SEGMENT ELEVATION ABNORMAL ECG Compared to ECG 05/25/2025 20:46:05 ACUTE MYOCARDIAL CURRENT OF INJURY IS RESOLVED Electronically Signed On 05-26-2025 08:47:14 CDT by Keith Lopez M.D.
--- NOTE | 2025-05-26 03:29 | PC.NURSE ---
Patient and family expressing wishes for patient (himself) to be a DNR. Patient alert & oriented x 4 and states that he would not want any life saving measures as far as life support (CPR, mechanical ventilation, etc.). Patient's family agree to patient's wishes. Patient states that he would not want to be brought back and would rather be let go peacefully. However, Dr. Bennett ordered for patient to be full code for the remainder of this admission. No further updates at this time.
[2025-05-26 08:33] LABS: Hematocrit 33.8 % (42.0-52.0); Hemoglobin 11.0 g/dL (14.0-18.0); Mean Corpuscular HGB Conc 32.5 g/dl (32-36); Mean Corpuscular Hemoglobin 31.0 pg (26-34); Mean Corpuscular Volume 95.2 fl (80-100); Platelet Count Result 265 k/mm3 (150-375); Red Blood Count 3.55 M/mm3 (4.6-6.20); White Blood Count 9.8 K/mm3 (4.5-10.0)
[2025-05-26] MEDS: ENOXAPARIN 40 MG/0.4 ML SYRINGE SUB-Q (08:41)
[2025-05-26] MEDS: CLOPIDOGREL BISULFATE 75 MG TABLET PO (08:42)
[2025-05-26] MEDS: ASPIRIN 81 MG ENTERIC TABLET PO (08:42)
--- NOTE | 2025-05-26 09:05 | P.CONIN_ITS ---
Assessment and Plan Assessment and plan (1) ST elevation (STEMI) myocardial infarction: Code(s): I21.3 - ST elevation (STEMI) myocardial infarction of unspecified site Status: Acute Assessment and Plan: Patient presented with inferior STEMI now status post PCI with stent placement in RCA and OM STEMI was complicated with VFib requiring 3x defibrillation. 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 Continue ICU telemetry monitoring Continue amiodarone infusion Check electrolytes this morning Continue aspirin, Plavix, Lipitor, Coreg, losartan Obtain echo Current chest pain the patient reported appears musculoskeletal on exam likely from CPR that he received. Will also obtained a repeat chest x-ray. Patient is on room air at this time (2) Ventricular fibrillation: Code(s): I49.01 - Ventricular fibrillation Status: Acute Assessment and Plan: See above (3) Swelling of lower extremity: Code(s): M79.89 - Other specified soft tissue disorders Status: Acute Assessment and Plan: Will obtain lower extremity Dopplers (4) Peripheral arterial disease: Code(s): I73.9 - Peripheral vascular disease, unspecified Status: Acute Assessment and Plan: Left foot is colder but both feet have dopplerable dorsalis pedis. Patient denies any symptoms like pain or paresthesia. Patient apparently has peripheral arterial disease. Will defer further workup to outpatient Will also obtain records from [facility] (5) Tobacco abuse: Code(s): Z72.0 - Tobacco use Status: Acute Assessment and Plan: Patient was counseled and encouraged to quit smoking (6) Hyperlipidemia: Code(s): E78.5 - Hyperlipidemia, unspecified Status: Acute Assessment and Plan: Continue Lipitor (7) Hypertension: Code(s): I10 - Essential (primary) hypertension Status: Acute Assessment and Plan: Currently on Coreg and losartan. Monitor Plan The DVT prophylaxis -Lovenox Stress ulcer prophylaxis - Nutrition -heart healthy diet Code Status -there has been concern perfusion of as patient's code status. I spoke to patient in detail in presence of patient's nurse. Patient wishes to be full code at this time. Total Critical Care Time - 30 minutes Due to a high probability of clinically significant, life threatening deterioration, the patient required my highest level of preparedness to intervene emergently and I personally spent this critical care time directly and personally managing the patient. This critical care time included obtaining a history; examining the patient; pulse oximetry; ordering and review of studies; arranging urgent treatment with development of a management plan; evaluation of patient's response to treatment; frequent reassessment; and discussions with other providers. It was exclusive of separately billable procedures and treating other patients and teaching time. Please see Assessment and Plan section and the rest of the note for further information on patient assessment and treatment Box Finisher Consult Note Consult date: 05/26/25 Reason for consult: STEMI, VFib HPI: Jose Alfredo Menjivar is a 85 year old male with past medical history 'pneumonia', 'heart attack', hypertension, hyperlipidemia tobacco abuse, cholecystectomy and hearing impairment who lives by himself presented yesterday to ER with chief complaint of chest pain. Chest pain started 2 hours prior to him calling 911. He lives by himself. Patient went into VFib patient was shocked once and pre CPR was done and a normal sinus rhythm was obtained. In ER patient was diagnosed with STEMI. Cardiology consulted. Patient was taken to cardiac catheterization lab. Patient underwent PCI to OM and RCA patient was noted to have infra renal abdominal aneurysm status post endovascular aneurysm repair. Patient also had 2 episodes of VFib during cardiac catheterization which was defibrillated. Postprocedure patient admitted to ICU. This morning patient states that he has mild pain in the middle of the chest where he received CPR and shock. He has states it is achy and worse with coughing. Patient is tender at the side. He also states that he is unable to take deep breaths. Review of system is positive hearing impairment, swelling of left leg. Denies any abdominal pain nausea vomiting hematochezia melena dysuria hematuria. No pain in the leg. All systems reviewed and were negative. He lives alone and has a son who lives in this area Review of Systems 2 Review of Systems: All systems reviewed & are unremarkable except as noted in HPI and below (HPI) [facility] Past Medical History Medical History (Updated 05/26/25 @ 09:15 by Riley Mercado MD) Peripheral arterial disease Tobacco abuse Ventricular fibrillation Hyperlipidemia Hypertension Surgical History Surgical History (Updated 05/26/25 @ 09:15 by Riley Mercado MD) History of cholecystectomy Social History Social History Smoking packs per day: 3 Smoking cigarettes per day: 60.0 Years smoked: 70 Smoking pack-years: 210.00 Smoking status: Current every day smoker Tobacco type: cigarettes Alcohol intake: never Substance use: never Lack of Transportation: No Lack of Food: Never True Current Housing: I Have Housing Concerned About Future Housing: No Difficulty Paying Gas/Electric Bills: No Difficulty Paying for Meds: No Currently Unemployed: No Education: High School Diploma/GED Difficulty w/ Childcare or Family Care: No Spiritual care concerns: No Meds Home Medications and Allergies Home Medications ?Medication ?Instructions ?Recorded ?Confirmed ?Type No Home Medications 05/26/25 05/26/25 H istory Allergies Allergy/AdvReac Type Severity Reaction Status Date / Time meperidine (From Demerol) Allergy Unknown Unknown Verified 05/25/25 21:47 Vital Signs Vital Signs - 24 hr 05/25/25 20:41 05/25/25 21:11 05/25/25 21:17 Temperature 36.8 C Pulse Rate 71 77 Respiratory Rate 25 H 34 H Blood Pressure 119/71 Pulse Oximetry 98 98 100 Oxygen Delivery Nasal Cannula Nasal Cannula Oxygen Flow Rate 5 2 05/25/25 21:17 05/25/25 21:21 05/26/25 00:00 Temperature 36.6 C Pulse Rate 87 77 68 Respiratory Rate 27 H 19 Blood Pressure 143/71 H Pulse Oximetry 100 95 Oxygen Delivery Oxygen Flow Rate 05/26/25 00:00 05/26/25 00:13 05/26/25 00:25 Temperature 36.7 C Pulse Rate 77 68 68 Respiratory Rate 27 H Blood Pressure 143/71 H 144/73 H Pulse Oximetry 96 Oxygen Delivery Oxygen Flow Rate 05/26/25 00:30 05/26/25 00:55 05/26/25 01:25 Temperature 36.7 C 36.6 C Pulse Rate 60 60 64 Respiratory Rate 20 20 12 Blood Pressure 138/67 138/67 Pulse Oximetry 96 96 99 Oxygen Delivery Nasal Cannula Oxygen Flow Rate 2 05/26/25 02:00 05/26/25 02:00 05/26/25 02:00 Temperature 36.7 C Pulse Rate 61 64 67 Respiratory Rate 118 H Blood Pressure 156/80 H 156/80 H Pulse Oximetry 100 Oxygen Delivery Oxygen Flow Rate 05/26/25 02:25 05/26/25 03:25 05/26/25 04:00 Temperature 36.6 C 36.3 C L Pulse Rate 67 66 73 Respiratory Rate 15 22 H 20 Blood Pressure 156/80 H 146/76 H Pulse Oximetry 97 96 98 Oxygen Delivery Nasal Cannula Oxygen Flow Rate 2 05/26/25 04:00 05/26/25 04:00 05/26/25 04:00 Temperature 36.4 C Pulse Rate 72 70 77 Respiratory Rate 18 Blood Pressure 153/84 H 153/84 H Pulse Oximetry 98 Oxygen Delivery Oxygen Flow Rate 05/26/25 04:25 05/26/25 05:41 05/26/25 06:00 Temperature 36.4 C Pulse Rate 70 66 62 Respiratory Rate 26 H Blood Pressure 157/74 H 154/90 H Pulse Oximetry 98 Oxygen Delivery Oxygen Flow Rate 05/26/25 06:00 05/26/25 06:00 05/26/25 08:42 Temperature 36.4 C Pulse Rate 61 61 70 Respiratory Rate 19 Blood Pressure 153/88 H 153/88 H Pulse Oximetry 99 Oxygen Delivery Oxygen Flow Rate Exam 2 Narrative: General: Pt is alert awake and in NAD Lungs/Chest: Trachea central Clear BS B/L, No crackles or wheezing. Cardiac: RRR. Normal S1 S2. No murmurs ectopic beat Circulation: Bilateral dorsalis pedis are dopplerable. Left foot is colder than the right. Right groin shows no swelling or hematoma Abdomen: Normal bowel sounds.. Soft. NT. ND. Extremities: . Edema in the left lower extremity : [place] in place Neurologic: Follows commands. Moves all 4 extremities PERRL AO x2, hearing impairment Skin: No Rash Results Labs 05/26/25 08:11 05/26/25 08:11 Labs: Short CBC 05/25/25 05/26/25 Range/Units 21:20 08:11 WBC 13.6 H 9.8 (4.5-10.0) K/mm3 Hgb 11.5 L 11.0 L (14.0-18.0) g/dL Hct 34.7 L 33.8 L (42.0-52.0) % Plt Count 292 265 (150-375) k/mm3 BMP 05/25/25 21:20 Sodium 139 Potassium 3.5 Chloride 111 H Carbon Dioxide 19 L BUN 13 Creatinine 0.73 Glucose 125 H Calcium 8.0 L Cardiac Enzymes 05/25/25 Range/Units 21:20 Troponin I 0.017 (0.000-0.034) ng/mL Liver Function 05/25/25 Range/Units 21:20 Total Bilirubin 0.5 (0.2-1.3) mg/dL AST 22 (17-59) U/L ALT 17 (6-50) U/L Alkaline Phosphatase 78 (38-126) U/L Albumin 3.0 L (3.5-5.1) g/dL Quality VTE Prophylaxis VTE prophylaxis: pharmacologic ordered Hospitalist MIPS Advance Care Plan I have confirmed that the patient's Advanced Care Plan is present, code status is documented, or surrogate decision maker is listed in patient medical record.: Yes Medication Reconciliation I have utilized all available resources to obtain, update and review the patients current medications (includes all prescriptions, OTC, herbals, cannabis, and nutritional supplements).: Yes
[2025-05-26 09:13] LABS: Alanine Aminotransferase 20 U/L (6-50); Albumin Level 3.0 g/dL (3.5-5.1); Alkaline Phosphatase 80 U/L (38-126); Anion Gap 8 mmol/L (4-12); Aspartate Amino Transferase 127 U/L (17-59); Bilirubin,Total 0.3 mg/dL (0.2-1.3); Blood Urea Nitrogen 11 mg/dL (9-20); Calcium 7.8 mg/dL (8.4-10.2); Carbon Dioxide 20 mmol/L (22-30); Chloride 111 mmol/L (98-107); Estimated CRCL calculation 67 ml/min; Estimated Glomerular Filt Rate > 60; Glucose 106 mg/dL (65-110); Magnesium 1.9 mg/dL (1.6-2.3); NT Pro B Type Natriuretic Pept 3720 pg/mL (19.9-100); Potassium 3.2 mmol/L (3.4-5.0); Sodium 139 mmol/L (137-145); Total Protein 6.7 g/dL (6.3-8.2)
--- NOTE | 2025-05-26 09:14 | PM.PNCARD ---
Progress Note: A&P Assessment and Plan (1) ST elevation (STEMI) myocardial infarction: Code(s): I21.3 - ST elevation (STEMI) myocardial infarction of unspecified site Status: Acute Plan 85-year-old man with chronic cigarette smoking presents with acute ST-elevation inferior infarction last evening. 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 He underwent angiographically successful PCI of subtotal distal circumflex lesion which appeared to be the culprit as well as high-grade distal RCA/RPDA lesion. His current of injury resolved after PCI as his hemodynamics are stable. Remains on intravenous amiodarone because of the arrest last evening. He is in sinus rhythm but with frequent unifocal PVCs and asymptomatic runs of AIVR. Will add ARB to the regimen as his hemodynamics are stable. Continue dual anti-platelet therapy and ICU observation at least until tomorrow. Keith Lopez MD [facility] Subjective Date/time seen: This date of service: 05/26/25 09:14 Interval history: Follow-up visit in this 85-year-old man with: Acute inferior wall myocardial infarction status post emergency catheterization/PCI involving stenting of the distal circumflex and distal RCA/RPDA last evening. 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 The patient required electrical defibrillation and is on intravenous amiodarone. Other than saying his chest feels sore he has no other complaints at this time. Exam Const: General: comfortable and no acute distress Other: Pleasant elderly gentleman appearing his stated age no distress at this time HENMT: Mouth: Yes moist mucous membranes Eyes: Sclera: sclerae normal Neck: Neck: supple and no JVD Resp: Effort & Inspection: normal respiratory effort Auscultation: clear to auscultation bilaterally Cardio: Rate: regular rate Rhythm: regular rhythm Other: Occasional extrasystoles GI: GI Palp: Yes Soft to palpation Auscultation: normal bowel sounds Urinary Catheter: Urinary Catheter: patent and draining Skin: General skin exam: normal color Neuro: Other: Alert and oriented x2 Extrem: Other: No significant edema. Distal pulses are diminished Objective Data Vital Signs Vital Signs: Vital Signs - 24 hr 05/25/25 20:41 05/25/25 21:11 05/25/25 21:17 Temperature 36.8 C Pulse Rate 71 77 Respiratory Rate 25 H 34 H Blood Pressure 119/71 Pulse Oximetry 98 98 100 Oxygen Delivery Nasal Cannula Nasal Cannula Oxygen Flow Rate 5 2 05/25/25 21:17 05/25/25 21:21 05/26/25 00:00 Temperature 36.6 C Pulse Rate 87 77 68 Respiratory Rate 27 H 19 Blood Pressure 143/71 H Pulse Oximetry 100 95 Oxygen Delivery Oxygen Flow Rate 05/26/25 00:00 05/26/25 00:13 05/26/25 00:25 Temperature 36.7 C Pulse Rate 77 68 68 Respiratory Rate 27 H Blood Pressure 143/71 H 144/73 H Pulse Oximetry 96 Oxygen Delivery Oxygen Flow Rate 05/26/25 00:30 05/26/25 00:55 05/26/25 01:25 Temperature 36.7 C 36.6 C Pulse Rate 60 60 64 Respiratory Rate 20 20 12 Blood Pressure 138/67 138/67 Pulse Oximetry 96 96 99 Oxygen Delivery Nasal Cannula Oxygen Flow Rate 2 05/26/25 02:00 05/26/25 02:00 05/26/25 02:00 Temperature 36.7 C Pulse Rate 61 64 67 Respiratory Rate 118 H Blood Pressure 156/80 H 156/80 H Pulse Oximetry 100 Oxygen Delivery Oxygen Flow Rate 05/26/25 02:25 05/26/25 03:25 05/26/25 04:00 Temperature 36.6 C 36.3 C L Pulse Rate 67 66 73 Respiratory Rate 15 22 H 20 Blood Pressure 156/80 H 146/76 H Pulse Oximetry 97 96 98 Oxygen Delivery Nasal Cannula Oxygen Flow Rate 2 05/26/25 04:00 05/26/25 04:00 05/26/25 04:00 Temperature 36.4 C Pulse Rate 72 70 77 Respiratory Rate 18 Blood Pressure 153/84 H 153/84 H Pulse Oximetry 98 Oxygen Delivery Oxygen Flow Rate 05/26/25 04:25 05/26/25 05:41 05/26/25 06:00 Temperature 36.4 C Pulse Rate 70 66 62 Respiratory Rate 26 H Blood Pressure 157/74 H 154/90 H Pulse Oximetry 98 Oxygen Delivery Oxygen Flow Rate 05/26/25 06:00 05/26/25 06:00 05/26/25 08:42 Temperature 36.4 C Pulse Rate 61 61 70 Respiratory Rate 19 Blood Pressure 153/88 H 153/88 H Pulse Oximetry 99 Oxygen Delivery Oxygen Flow Rate Intake/Output Intake/Output: Intake & Output 05/23/25 05/24/25 05/25/25 05/26/25 23:59 23:59 23:59 23:59 Intake Total 131.4 Output Total 250 Balance -118.6 Meds/Results Medications: Active Medications Generic Name Dose Route Start Last Admin Trade Name Freq PRN Reason Stop Dose Admin Aspirin 81 mg 05/26/25 09:00 05/26/25 08:42 Aspirin 81 Mg Enteric Tablet PO 81 mg QAM SAAD Administration Atorvastatin Calcium 80 mg 05/26/25 21:00 Atorvastatin 40 Mg Tablet PO QHS SAAD Carvedilol 6.25 mg 05/26/25 09:00 05/26/25 08:42 Carvedilol 6.25 Mg Tablet PO 6.25 mg Q12HR SAAD Administration Clopidogrel Bisulfate 75 mg 05/26/25 09:00 05/26/25 08:42 Clopidogrel Bisulfate 75 Mg Tablet PO 75 mg QAM SAAD Administration Enoxaparin Sodium 40 mg 05/26/25 09:00 05/26/25 08:41 Enoxaparin 40 Mg/0.4 Ml Syringe SUB-Q 40 mg DAILY SAAD Administration Amiodarone HCl/Dextrose 360 mg in 200 mls @ 16.667 mls/hr 05/26/25 06:00 05/26/25 06:00 Nexterone 360 Mg/D5w 200 Ml IV CONT 0.5 mg/min .Q12H SAAD 16.67 mls/hr 0.5 MG/MIN Infusion Perflutren Lipid Microsphere 0 ml 05/26/25 00:35 Perflutren Lipid Microspheres 1.5 Ml Vial Diluted To 10 Ml Total Volume IV PUSH 05/29/25 00:35 ONCE PRN adequate visualization Protocol Labs Labs: Laboratory Results - last 24 hr 05/25/25 05/25/25 05/26/25 21:20 21:21 08:11 WBC 13.6 H 9.8 RBC 3.66 L 3.55 L Hgb 11.5 L 11.0 L Hct 34.7 L 33.8 L MCV 94.8 95.2 MCH 31.4 31.0 MCHC 33.1 32.5 RDW 13.7 13.9 Plt Count 292 265 MPV 10.4 10.0 Immature Gran % (Auto) 1.0 H Neut % (Auto) 74.9 H Lymph % (Auto) 14.0 L Todd % (Auto) 8.2 Eos % (Auto) 1.5 Baso % (Auto) 0.4 Lymph # (Auto) 1.90 Todd # (Auto) 1.1 H Eos # (Auto) 0.2 Baso # (Auto) 0.1 Abs Immat Gran (auto) 0.13 H Absolute Neuts (auto) 10.2 H Absolute Nucleated RBC 0.000 Nucleated RBC % 0.0 PT 16.5 H INR 1.4 APTT 131.9 H Sodium 139 139 Potassium 3.5 3.2 L Chloride 111 H 111 H Carbon Dioxide 19 L 20 L Anion Gap 9 8 BUN 13 11 Creatinine 0.73 0.68 L Estim Creat Clear Calc 64 67 Estimated GFR > 60 > 60 Glucose 125 H 106 Calcium 8.0 L 7.8 L Phosphorus 3.1 2.6 Magnesium 1.8 1.9 Total Bilirubin 0.5 0.3 AST 22 127 H ALT 17 20 Alkaline Phosphatase 78 80 Troponin I 0.017 NT-Pro-B Natriuret Pep 3720 H Total Protein 6.5 6.7 Albumin 3.0 L 3.0 L Triglycerides 118 Cholesterol 113 LDL Cholesterol Direct 51 HDL Direct 35 Nasal MRSA (PCR) Not detected Blood Type A Positive Antibody Screen Negative
[2025-05-26 09:38] LABS: Thyroid Stimulating Hormone Reflex 0.363 uIU/mL (0.465-4.68)
[2025-05-26] MEDS: POTASSIUM BICARBONATE 25 MEQ TABEF 50 MEQ PO (09:53)
[2025-05-26] MEDS: LOSARTAN POTASSIUM 25 MG TABLET PO (09:53)
[2025-05-26] MEDS: CALCIUM GLUC 2,000 MG/NS 100ML 2,000 MG/100 ML BAG 100 MG IVPB (09:54)
[2025-05-26] MEDS: MAGNESIUM SULF 1 GM/D5W 100 ML 1 GM/100 ML BAG IVPB (09:54)
[2025-05-26 10:02] LABS: Troponin I 16.800 ng/mL (0.000-0.034)
[2025-05-26 10:04] LABS: Free T4 Free Thyroxine Reflex 2.35 ng/dL (0.78-2.19)
[2025-05-26] MEDS: PERFLUTREN LIPID MICROSPHERES 1.5 ML VIAL DILUTED TO 10 ML TOTAL VOLUME IV PUSH (11:45)
--- NOTE | 2025-05-26 11:45 | IVDEFINITY ---
Prior to administration of IV Definity the patient was educated on the risks and benefits of the imaging enhancing agent including potential adverse side effects. The patient verbalized understanding. Allergies were verified. No exclusion criteria were identified and at least one of the following inclusion criteria were met: 1) physician request, 2) patient technically difficult to image (per the [place] [employer] guidelines of two or more segments not discernable within the apical view), or 3) questionable left ventricular function. ?
[2025-05-26] MEDS: POTASSIUM BICARBONATE 25 MEQ TABEF PO (13:06)
[2025-05-26] MEDS: ACETAMINOPHEN 325 MG TABLET 650 MG PO (17:32)
[2025-05-26 20:45] LABS: Toxigenic C. Diff NEGATIVE (NEGATIVE)
[2025-05-26] MEDS: ATORVASTATIN 40 MG TABLET 80 MG PO (20:59)
[2025-05-27] VITALS (31 sets, daily range): BP systolic 99–137; BP diastolic 52–93; PULSE 49–71; RESP 8–39; TEMP 36.5–37.4; O2SAT 83–100
[2025-05-27 04:14] LABS: Hematocrit 32.2 % (42.0-52.0); Hemoglobin 10.5 g/dL (14.0-18.0); Mean Corpuscular HGB Conc 32.6 g/dl (32-36); Mean Corpuscular Hemoglobin 30.8 pg (26-34); Mean Corpuscular Volume 94.4 fl (80-100); Platelet Count Result 243 k/mm3 (150-375); Red Blood Count 3.41 M/mm3 (4.6-6.20); White Blood Count 8.3 K/mm3 (4.5-10.0)
[2025-05-27 04:46] LABS: Alanine Aminotransferase 22 U/L (6-50); Albumin Level 2.8 g/dL (3.5-5.1); Alkaline Phosphatase 71 U/L (38-126); Anion Gap 3 mmol/L (4-12); Aspartate Amino Transferase 104 U/L (17-59); Bilirubin,Total 0.4 mg/dL (0.2-1.3); Blood Urea Nitrogen 12 mg/dL (9-20); Calcium 8.1 mg/dL (8.4-10.2); Carbon Dioxide 23 mmol/L (22-30); Chloride 111 mmol/L (98-107); Estimated CRCL calculation 59 ml/min; Estimated Glomerular Filt Rate > 60; Glucose 96 mg/dL (65-110); Magnesium 2.1 mg/dL (1.6-2.3); Potassium 3.8 mmol/L (3.4-5.0); Sodium 137 mmol/L (137-145); Total Protein 6.2 g/dL (6.3-8.2)
[2025-05-27] MEDS: ASPIRIN 81 MG ENTERIC TABLET PO (08:34)
[2025-05-27] MEDS: POTASSIUM BICARBONATE 25 MEQ TABEF PO (08:34)
[2025-05-27] MEDS: ENOXAPARIN 40 MG/0.4 ML SYRINGE SUB-Q (08:34)
[2025-05-27] MEDS: CLOPIDOGREL BISULFATE 75 MG TABLET PO (08:34)
[2025-05-27] MEDS: LOSARTAN POTASSIUM 25 MG TABLET PO (08:35)
--- NOTE | 2025-05-27 09:34 | P.PNCA_ITS ---
Progress Note: A&P Assessment and Plan (1) ST elevation (STEMI) myocardial infarction: Code(s): I21.3 - ST elevation (STEMI) myocardial infarction of unspecified site Status: Acute Plan 85-year-old man with: Acute ST-elevation [place] status post emergent revascularization with PCI to the distal circumflex and distal right coronary artery as detailed in the director labor standards note. Admission and procedure was complicated by 3 episodes of ventricular fibrillation. IV amiodarone will be stopped this morning there have been no arrhythmias since I made rounds yesterday. Continue the remainder of his guideline directed medical therapy. He can be moved out of ICU today and have his Bethea catheter removed. Keith Lopez MD [facility] Subjective Date/time seen: Date of service: 05/27/25 09:34 Interval history: Follow-up visit in this 85-year-old man with: Acute inferior wall myocardial infarction status post emergency catheterization/PCI involving stenting of the distal circumflex and distal RCA/RPDA last evening. Station with ventricular fibrillation 3 times last evening at the time of presentation and twice in the director labor standards. The patient required electrical defibrillation and is on intravenous amiodarone. Other than saying his chest feels sore he has no other complaints at this time. 05/27/2025: Patient resting comfortably this morning describes no cardiovascular complaints. Only complaint is uncomfortable mattress in his bed. No arrhythmias overnight. Exam Const: General: comfortable and no acute distress Other: Pleasant elderly gentleman appearing his stated age no distress at this time HENMT: Mouth: Yes moist mucous membranes and Yes dry mucous membranes Eyes: Sclera: sclerae normal EOM: EOMs intact bilaterally Neck: Neck: supple and no JVD Resp: Effort & Inspection: normal respiratory effort Auscultation: clear to auscultation bilaterally Cardio: Rate: regular rate Rhythm: regular rhythm Heart sounds: no murmurs Other: Occasional extrasystoles GI: Auscultation: normal bowel sounds Urinary Catheter: Urinary Catheter: patent and draining Skin: General skin exam: normal color Neuro: Other: Alert and oriented x2 Extrem: Other: No significant edema. Distal pulses are diminished Objective Data Vital Signs Vital Signs: Vital Signs - 24 hr 05/26/25 10:00 05/26/25 10:00 05/26/25 10:00 Temperature 36.8 C Pulse Rate 68 68 68 Respiratory Rate 28 H Blood Pressure 135/87 135/87 Pulse Oximetry 99 Oxygen Delivery 05/26/25 12:00 05/26/25 12:00 05/26/25 12:00 Temperature 37.0 C Pulse Rate 59 L 58 L Respiratory Rate 25 H Blood Pressure 110/77 110/77 Pulse Oximetry 99 98 Oxygen Delivery Room Air 05/26/25 12:00 05/26/25 14:00 05/26/25 14:00 Temperature Pulse Rate 63 60 59 L Respiratory Rate Blood Pressure 120/60 Pulse Oximetry Oxygen Delivery 05/26/25 14:00 05/26/25 16:00 05/26/25 16:00 Temperature 37.3 C 37.8 C H Pulse Rate 58 L 62 61 Respiratory Rate 15 14 Blood Pressure 120/60 118/72 118/72 Pulse Oximetry 97 99 Oxygen Delivery 05/26/25 16:00 05/26/25 16:00 05/26/25 16:56 Temperature Pulse Rate 61 66 Respiratory Rate Blood Pressure 118/72 Pulse Oximetry 99 Oxygen Delivery Room Air 05/26/25 16:56 05/26/25 17:32 05/26/25 18:00 Temperature 38.0 C H Pulse Rate 66 60 Respiratory Rate Blood Pressure 118/72 127/55 L Pulse Oximetry Oxygen Delivery 05/26/25 18:00 05/26/25 18:00 05/26/25 18:32 Temperature 37.9 C H 37.9 C H Pulse Rate 60 60 Respiratory Rate 24 H Blood Pressure 127/55 L Pulse Oximetry 97 Oxygen Delivery 05/26/25 19:01 05/26/25 20:00 05/26/25 20:00 Temperature 37.8 C H Pulse Rate 68 65 56 L Respiratory Rate 35 H Blood Pressure 121/61 134/67 Pulse Oximetry 94 Oxygen Delivery 05/26/25 20:00 05/26/25 20:59 05/26/25 22:00 Temperature Pulse Rate 68 61 Respiratory Rate Blood Pressure Pulse Oximetry 97 Oxygen Delivery Room Air 05/26/25 22:00 05/26/25 22:00 05/26/25 23:00 Temperature 37.4 C 37.4 C Pulse Rate 57 L 63 59 L Respiratory Rate 7 L 28 H Blood Pressure 121/65 121/65 115/63 Pulse Oximetry 97 97 Oxygen Delivery 05/27/25 00:00 05/27/25 00:00 05/27/25 00:00 Temperature 37.4 C 37.4 C Pulse Rate 61 64 59 L Respiratory Rate 22 H 8 L Blood Pressure 137/52 L 99/64 L 99/64 L Pulse Oximetry 97 96 Oxygen Delivery 05/27/25 00:00 05/27/25 00:00 05/27/25 00:01 Temperature 37.4 C Pulse Rate 57 L 60 Respiratory Rate 11 L Blood Pressure Pulse Oximetry 98 99 Oxygen Delivery Room Air 05/27/25 01:00 05/27/25 01:45 05/27/25 02:00 Temperature 37.4 C 37.4 C 37.3 C Pulse Rate 63 65 60 Respiratory Rate 35 H 19 32 H Blood Pressure 137/52 L 116/61 Pulse Oximetry 97 96 97 Oxygen Delivery 05/27/25 02:00 05/27/25 02:00 05/27/25 02:43 Temperature 37.3 C Pulse Rate 65 64 66 Respiratory Rate 36 H Blood Pressure 116/61 Pulse Oximetry 99 Oxygen Delivery 05/27/25 02:45 05/27/25 03:01 05/27/25 03:16 Temperature 37.3 C 37.3 C 37.3 C Pulse Rate 49 L 61 63 Respiratory Rate 14 33 H 34 H Blood Pressure Pulse Oximetry 98 96 99 Oxygen Delivery 05/27/25 03:31 05/27/25 03:46 05/27/25 04:00 Temperature 37.2 C 37.3 C Pulse Rate 55 L 62 55 L Respiratory Rate 15 39 H Blood Pressure 127/69 Pulse Oximetry 95 83 L Oxygen Delivery 05/27/25 04:00 05/27/25 04:00 05/27/25 04:01 Temperature 37.3 C Pulse Rate 57 L 57 L Respiratory Rate 14 Blood Pressure Pulse Oximetry 100 99 Oxygen Delivery Room Air 05/27/25 04:15 05/27/25 04:16 05/27/25 04:16 Temperature 37.3 C Pulse Rate 61 61 55 L Respiratory Rate 17 Blood Pressure 127/69 127/69 Pulse Oximetry 98 Oxygen Delivery 05/27/25 04:25 05/27/25 06:00 05/27/25 06:00 Temperature Pulse Rate 55 L 55 L Respiratory Rate Blood Pressure 127/69 130/67 Pulse Oximetry Oxygen Delivery 05/27/25 06:00 05/27/25 06:15 05/27/25 06:30 Temperature 37.2 C 37.2 C 37.2 C Pulse Rate 53 L 56 L 56 L Respiratory Rate 25 H 15 28 H Blood Pressure 130/67 Pulse Oximetry 97 96 99 Oxygen Delivery 05/27/25 06:46 05/27/25 08:34 Temperature 37.2 C Pulse Rate 56 L 69 Respiratory Rate 15 Blood Pressure Pulse Oximetry 98 Oxygen Delivery Intake/Output Intake/Output: Intake & Output 05/24/25 05/25/25 05/26/25 05/27/25 23:59 23:59 23:59 23:59 Intake Total 1397.9 423.0 Output Total 500 125 Balance 897.9 298.0 Meds/Results Medications: Active Medications Generic Name Dose Route Start Last Admin Trade Name Freq PRN Reason Stop Dose Admin Acetaminophen 650 mg 05/26/25 16:58 05/26/25 17:32 Acetaminophen 325 Mg Tablet PO 650 mg Q4H PRN Administration Mild Pain (1-3) or Fever Aspirin 81 mg 05/26/25 09:00 05/27/25 08:34 Aspirin 81 Mg Enteric Tablet PO 81 mg QAM SAAD Administration Atorvastatin Calcium 80 mg 05/26/25 21:00 05/26/25 20:59 Atorvastatin 40 Mg Tablet PO 80 mg QHS SAAD Administration Carvedilol 6.25 mg 05/26/25 09:00 05/27/25 08:34 Carvedilol 6.25 Mg Tablet PO 6.25 mg Q12HR SAAD Administration Clopidogrel Bisulfate 75 mg 05/26/25 09:00 05/27/25 08:34 Clopidogrel Bisulfate 75 Mg Tablet PO 75 mg QAM SAAD Administration Enoxaparin Sodium 40 mg 05/26/25 09:00 05/27/25 08:34 Enoxaparin 40 Mg/0.4 Ml Syringe SUB-Q 40 mg DAILY SAAD Administration Losartan Potassium 25 mg 05/26/25 09:15 05/27/25 08:35 Losartan Potassium 25 Mg Tablet PO 25 mg DAILY SAAD Administration Radiology Results: ITS Impressions Chest X-Ray 05/26/25 11:43 IMPRESSION: 1. Minimal bibasilar atelectasis. 2. Lungs otherwise clear. Venous Doppler Study 05/26/25 12:45 IMPRESSION: 1. No DVT either leg. Labs Labs: Laboratory Results - last 24 hr 05/25/25 05/26/2525 22:53 08:11 19:35 WBC RBC Hgb Hct MCV MCH MCHC RDW Plt Count MPV Activ Coag Time Kaolin 245 H Sodium Potassium Chloride Carbon Dioxide Anion Gap BUN Creatinine Estim Creat Clear Calc Estimated GFR Glucose Calcium Magnesium Total Bilirubin AST ALT Alkaline Phosphatase Troponin I 16.800 H* Total Protein Albumin TSH (Reflex) 0.363 L Free T4 2.35 H C. difficile (PCR) Negative 05/27/25 05/27/25 03:18 03:21 WBC 8.3 RBC 3.41 L Hgb 10.5 L Hct 32.2 L MCV 94.4 MCH 30.8 MCHC 32.6 RDW 14.1 Plt Count 243 MPV 10.2 Activ Coag Time Kaolin Sodium 137 Potassium 3.8 Chloride 111 H Carbon Dioxide 23 Anion Gap 3 L BUN 12 Creatinine 0.79 Estim Creat Clear Calc 59 Estimated GFR > 60 Glucose 96 Calcium 8.1 L Magnesium 2.1 Total Bilirubin 0.4 AST 104 H ALT 22 Alkaline Phosphatase 71 Troponin I Total Protein 6.2 L Albumin 2.8 L TSH (Reflex) Free T4 C. difficile (PCR)
--- NOTE | 2025-05-27 10:17 | WPDINTPN ---
Progress Note: A&P Assessment and Plan (1) ST elevation (STEMI) myocardial infarction: Code(s): I21.3 - ST elevation (STEMI) myocardial infarction of unspecified site Status: Acute Assessment and Plan: Patient presented with inferior STEMI now status post PCI with stent placement in RCA and OM STEMI was complicated with VFib requiring 3x defibrillation. 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 Continue telemetry monitoring Cardiology planning to discontinue amiodarone infusion start p.o. beta-brianda Replace low potassium Continue aspirin, Plavix, Lipitor, Coreg, losartan Echo reviewed and shows Summary 1. Mild left ventricular. 2. Mild left ventricular enlargement with global hypokinesia, posterior akinesia ejection fraction 30-35%. 3. Dilated left atrium. 4. Mild aortic and mitral valve regurgitation. Discussed with Cardiology (2) Ventricular fibrillation: Code(s): I49.01 - Ventricular fibrillation Status: Acute Assessment and Plan: See above (3) Swelling of lower extremity: Code(s): M79.89 - Other specified soft tissue disorders Status: Acute Assessment and Plan: Lower extremity Doppler was negative he (4) Peripheral arterial disease: Code(s): I73.9 - Peripheral vascular disease, unspecified Status: Acute Assessment and Plan: Left foot is colder but both feet have dopplerable dorsalis pedis. Patient denies any symptoms like pain or paresthesia. Patient apparently has peripheral arterial disease. Will defer further workup to outpatient Requested records from [facility] (5) Tobacco abuse: Code(s): Z72.0 - Tobacco use Status: Acute Assessment and Plan: Patient was counseled and encouraged to quit smoking (6) Hyperlipidemia: Code(s): E78.5 - Hyperlipidemia, unspecified Status: Acute Assessment and Plan: Continue Lipitor (7) Hypertension: Code(s): I10 - Essential (primary) hypertension Status: Acute Assessment and Plan: Currently on Coreg and losartan. Monitor Plan The DVT prophylaxis -Lovenox Nutrition -heart healthy diet Code Status -there has been concern perfusion of as patient's code status. I spoke to patient in detail in presence of patient's nurse. Patient wishes to be full code at this time. Incentive spirometry PT OT Transfer out of ICU today Subjective Date/time seen: 05/27/25 Overnight events reviewed. Patient states he is feeling better and denies any pain. He is bothered by his urinary catheter and wants it removed. He states he does have some pain on deep breathing. Sinus bradycardia. With stable blood pressure. He is on room air. He is afebrile. He is tolerating p.o. diet. All other systems were reviewed and were negative. Review of Systems Review of Systems: All systems reviewed & are unremarkable except as noted in HPI and below (HPI) Exam Narrative: General: Pt is alert awake and in NAD Lungs/Chest: Trachea central Clear BS B/L, No crackles or wheezing. Cardiac: RRR. Normal S1 S2. No murmurs ectopic beat Circulation: Bilateral dorsalis pedis are dopplerable. Left foot is colder than the right. Right groin shows no swelling or hematoma Abdomen: Normal bowel sounds.. Soft. NT. ND. Extremities: . Edema in the left lower extremity : Bethea in place Neurologic: Follows commands. Moves all 4 extremities PERRL AO x2, hearing impairment Skin: No Rash Objective Data Vital Signs Vital Signs: Vital Signs - 24 hr 05/26/25 12:00 05/26/25 12:00 05/26/25 12:00 Temperature 37.0 C Pulse Rate 59 L 58 L Respiratory Rate 25 H Blood Pressure 110/77 110/77 Pulse Oximetry 99 98 Oxygen Delivery Room Air 05/26/25 12:00 05/26/25 14:00 05/26/25 14:00 Temperature Pulse Rate 63 60 59 L Respiratory Rate Blood Pressure 120/60 Pulse Oximetry Oxygen Delivery 05/26/25 14:00 05/26/25 16:00 05/26/25 16:00 Temperature 37.3 C 37.8 C H Pulse Rate 58 L 62 61 Respiratory Rate 15 14 Blood Pressure 120/60 118/72 118/72 Pulse Oximetry 97 99 Oxygen Delivery 05/26/25 16:00 05/26/25 16:00 05/26/25 16:56 Temperature Pulse Rate 61 66 Respiratory Rate Blood Pressure 118/72 Pulse Oximetry 99 Oxygen Delivery Room Air 05/26/25 16:56 05/26/25 17:32 05/26/25 18:00 Temperature 38.0 C H Pulse Rate 66 60 Respiratory Rate Blood Pressure 118/72 127/55 L Pulse Oximetry Oxygen Delivery 05/26/25 18:00 05/26/25 18:00 05/26/25 18:32 Temperature 37.9 C H 37.9 C H Pulse Rate 60 60 Respiratory Rate 24 H Blood Pressure 127/55 L Pulse Oximetry 97 Oxygen Delivery 05/26/25 19:01 05/26/25 20:00 05/26/25 20:00 Temperature 37.8 C H Pulse Rate 68 65 56 L Respiratory Rate 35 H Blood Pressure 121/61 134/67 Pulse Oximetry 94 Oxygen Delivery 05/26/25 20:00 05/26/25 20:59 05/26/25 22:00 Temperature Pulse Rate 68 61 Respiratory Rate Blood Pressure Pulse Oximetry 97 Oxygen Delivery Room Air 05/26/25 22:00 05/26/25 22:00 05/26/25 23:00 Temperature 37.4 C 37.4 C Pulse Rate 57 L 63 59 L Respiratory Rate 7 L 28 H Blood Pressure 121/65 121/65 115/63 Pulse Oximetry 97 97 Oxygen Delivery 05/27/25 00:00 05/27/25 00:00 05/27/25 00:00 Temperature 37.4 C 37.4 C Pulse Rate 61 64 59 L Respiratory Rate 22 H 8 L Blood Pressure 137/52 L 99/64 L 99/64 L Pulse Oximetry 97 96 Oxygen Delivery 05/27/25 00:00 05/27/25 00:00 05/27/25 00:01 Temperature 37.4 C Pulse Rate 57 L 60 Respiratory Rate 11 L Blood Pressure Pulse Oximetry 98 99 Oxygen Delivery Room Air 05/27/25 01:00 05/27/25 01:45 05/27/25 02:00 Temperature 37.4 C 37.4 C 37.3 C Pulse Rate 63 65 60 Respiratory Rate 35 H 19 32 H Blood Pressure 137/52 L 116/61 Pulse Oximetry 97 96 97 Oxygen Delivery 05/27/25 02:00 05/27/25 02:00 05/27/25 02:43 Temperature 37.3 C Pulse Rate 65 64 66 Respiratory Rate 36 H Blood Pressure 116/61 Pulse Oximetry 99 Oxygen Delivery 05/27/25 02:45 05/27/25 03:01 05/27/25 03:16 Temperature 37.3 C 37.3 C 37.3 C Pulse Rate 49 L 61 63 Respiratory Rate 14 33 H 34 H Blood Pressure Pulse Oximetry 98 96 99 Oxygen Delivery 05/27/25 03:31 05/27/25 03:46 05/27/25 04:00 Temperature 37.2 C 37.3 C Pulse Rate 55 L 62 55 L Respiratory Rate 15 39 H Blood Pressure 127/69 Pulse Oximetry 95 83 L Oxygen Delivery 05/27/25 04:00 05/27/25 04:00 05/27/25 04:01 Temperature 37.3 C Pulse Rate 57 L 57 L Respiratory Rate 14 Blood Pressure Pulse Oximetry 100 99 Oxygen Delivery Room Air 05/27/25 04:15 05/27/25 04:16 05/27/25 04:16 Temperature 37.3 C Pulse Rate 61 61 55 L Respiratory Rate 17 Blood Pressure 127/69 127/69 Pulse Oximetry 98 Oxygen Delivery 05/27/25 04:25 05/27/25 06:00 05/27/25 06:00 Temperature Pulse Rate 55 L 55 L Respiratory Rate Blood Pressure 127/69 130/67 Pulse Oximetry Oxygen Delivery 05/27/25 06:00 05/27/25 06:15 05/27/25 06:30 Temperature 37.2 C 37.2 C 37.2 C Pulse Rate 53 L 56 L 56 L Respiratory Rate 25 H 15 28 H Blood Pressure 130/67 Pulse Oximetry 97 96 99 Oxygen Delivery 05/27/25 06:46 05/27/25 08:00 05/27/25 08:34 Temperature 37.2 C 36.6 C Pulse Rate 56 L 71 69 Respiratory Rate 15 25 H Blood Pressure 132/73 Pulse Oximetry 98 99 Oxygen Delivery Intake/Output Intake/Output: Intake & Output 05/24/25 05/25/25 05/26/25 05/27/25 23:59 23:59 23:59 23:59 Intake Total 1397.9 423.0 Output Total 500 125 Balance 897.9 298.0 Meds/Results Medications: Active Medications Generic Name Dose Route Start Last Admin Trade Name Freq PRN Reason Stop Dose Admin Acetaminophen 650 mg 05/26/25 16:58 05/26/25 17:32 Acetaminophen 325 Mg Tablet PO 650 mg Q4H PRN Administration Mild Pain (1-3) or Fever Aspirin 81 mg 05/26/25 09:00 05/27/25 08:34 Aspirin 81 Mg Enteric Tablet PO 81 mg QAM SAAD Administration Atorvastatin Calcium 80 mg 05/26/25 21:00 05/26/25 20:59 Atorvastatin 40 Mg Tablet PO 80 mg QHS SAAD Administration Carvedilol 6.25 mg 05/26/25 09:00 05/27/25 08:34 Carvedilol 6.25 Mg Tablet PO 6.25 mg Q12HR SAAD Administration Clopidogrel Bisulfate 75 mg 05/26/25 09:00 05/27/25 08:34 Clopidogrel Bisulfate 75 Mg Tablet PO 75 mg QAM SAAD Administration Enoxaparin Sodium 40 mg 05/26/25 09:00 05/27/25 08:34 Enoxaparin 40 Mg/0.4 Ml Syringe SUB-Q 40 mg DAILY SAAD Administration Losartan Potassium 25 mg 05/26/25 09:15 05/27/25 08:35 Losartan Potassium 25 Mg Tablet PO 25 mg DAILY SAAD Administration Radiology Results: ITS Impressions Chest X-Ray 05/26/25 11:43 IMPRESSION: 1. Minimal bibasilar atelectasis. 2. Lungs otherwise clear. Venous Doppler Study 05/26/25 12:45 IMPRESSION: 1. No DVT either leg. Labs Labs: Laboratory Results - last 24 hr 05/25/25 05/26/25 05/27/25 22:53 19:35 03:18 WBC RBC Hgb Hct MCV MCH MCHC RDW Plt Count MPV Activ Coag Time Kaolin 245 H Sodium 137 Potassium 3.8 Chloride 111 H Carbon Dioxide 23 Anion Gap 3 L BUN 12 Creatinine 0.79 Estim Creat Clear Calc 59 Estimated GFR > 60 Glucose 96 Calcium 8.1 L Magnesium 2.1 Total Bilirubin 0.4 AST 104 H ALT 22 Alkaline Phosphatase 71 Total Protein 6.2 L Albumin 2.8 L C. difficile (PCR) Negative 05/27/25 03:21 WBC 8.3 RBC 3.41 L Hgb 10.5 L Hct 32.2 L MCV 94.4 MCH 30.8 MCHC 32.6 RDW 14.1 Plt Count 243 MPV 10.2 Activ Coag Time Kaolin Sodium Potassium Chloride Carbon Dioxide Anion Gap BUN Creatinine Estim Creat Clear Calc Estimated GFR Glucose Calcium Magnesium Total Bilirubin AST ALT Alkaline Phosphatase Total Protein Albumin C. difficile (PCR) Quality VTE Prophylaxis VTE prophylaxis: pharmacologic ordered
[2025-05-27] MEDS: ATORVASTATIN 40 MG TABLET 80 MG PO (20:39)
[2025-05-28] VITALS (11 sets, daily range): BP systolic 105–139; BP diastolic 54–61; PULSE 50–70; RESP 21–32; TEMP 36.6–36.8; O2SAT 95–99
[2025-05-28 04:20] LABS: Hematocrit 32.6 % (42.0-52.0); Hemoglobin 10.6 g/dL (14.0-18.0); Mean Corpuscular HGB Conc 32.5 g/dl (32-36); Mean Corpuscular Hemoglobin 31.5 pg (26-34); Mean Corpuscular Volume 97.0 fl (80-100); Platelet Count Result 242 k/mm3 (150-375); Red Blood Count 3.36 M/mm3 (4.6-6.20); White Blood Count 7.5 K/mm3 (4.5-10.0)
[2025-05-28 04:40] LABS: Alanine Aminotransferase 19 U/L (6-50); Albumin Level 2.6 g/dL (3.5-5.1); Alkaline Phosphatase 67 U/L (38-126); Anion Gap 5 mmol/L (4-12); Aspartate Amino Transferase 49 U/L (17-59); Bilirubin,Total 0.5 mg/dL (0.2-1.3); Blood Urea Nitrogen 15 mg/dL (9-20); Calcium 7.9 mg/dL (8.4-10.2); Carbon Dioxide 23 mmol/L (22-30); Chloride 111 mmol/L (98-107); Estimated CRCL calculation 51 ml/min; Estimated Glomerular Filt Rate > 60; Glucose 106 mg/dL (65-110); Magnesium 2.0 mg/dL (1.6-2.3); Potassium 3.6 mmol/L (3.4-5.0); Sodium 139 mmol/L (137-145); Total Protein 5.9 g/dL (6.3-8.2)
--- NOTE | 2025-05-28 06:51 | PC.NURSE ---
pt tyransfered to via wheel chair verb no c/o
--- NOTE | 2025-05-28 07:15 | PC.NURSE ---
This patient, Jose Alfredo Menjivar, was received from [ ICU 9] on 05/28/25 at 0644. Patient/family oriented to unit policies and routines
[2025-05-28] MEDS: ENOXAPARIN 40 MG/0.4 ML SYRINGE SUB-Q ×2 (10:01→10:04)
[2025-05-28] MEDS: METOPROLOL SUCCINATE EXT REL 25 MG TABCR PO ×2 (10:03→10:04)
[2025-05-28] MEDS: SPIRONOLACTONE 25 MG TABLET PO ×2 (10:03→10:04)
[2025-05-28] MEDS: EMPAGLIFLOZIN 10 MG TABLET PO (10:04)
[2025-05-28] MEDS: CLOPIDOGREL BISULFATE 75 MG TABLET PO (10:05)
[2025-05-28] MEDS: ASPIRIN 81 MG ENTERIC TABLET PO (10:05)
[2025-05-28] MEDS: LOSARTAN POTASSIUM 25 MG TABLET PO (10:05)
--- NOTE | 2025-05-28 11:37 | ECG_ITS ---
Test Date: 2025-05-28 12:07:55 Measurements Intervals [place] Rate: 61 P: 0 [place]: 0 QRS: -12 QRSD: 72 T: -44 QT: 411 QTc: 415 Interpretive Statements SINUS RHYTHM WITH OCCASIONAL PACS INFERIOR MYOCARDIAL INFARCTION , OF INDETERMINATE AGE [40+ ms Q WAVE AND/OR ST/T ABNORMALITY IN II/aVF] NONSPECIFIC T-WAVE ABNORMALITIES Compared to ECG 05/26/2025 02:51:42 NO SIGNIFICANT CHANGES Electronically Signed On 05-28-2025 14:42:34 CDT by Dany Bennett M.D.
--- NOTE | 2025-05-28 11:39 | P.PNCA_ITS ---
Progress Note: A&P Assessment and Plan (1) ST elevation (STEMI) myocardial infarction: Code(s): I21.3 - ST elevation (STEMI) myocardial infarction of unspecified site Status: Acute (2) Hyperlipidemia: Code(s): E78.5 - Hyperlipidemia, unspecified Status: Acute (3) Ischemic cardiomyopathy: Code(s): I25.5 - Ischemic cardiomyopathy Status: Acute Plan 85-year-old man with coronary artery disease status post PCI to the OM and RCA, infrarenal abdominal aneurysm status post EVAR, hypertension, and hyperlipidemia presented with chest pain whose presentation is consistent with inferior STEMI Inferior STEMI status post PCI -continue aspirin 81 mg p.o. daily and Plavix 75 mg p.o. daily indefinitely -continue metoprolol succinate 25 mg p.o. daily Ischemic cardiomyopathy -continue Toprol 25 mg p.o. daily, losartan 25 mg p.o. daily -add spironolactone 25 mg p.o. daily and Jardiance 10 mg p.o. daily -euvolemic Hyperlipidemia -atorvastatin 80 mg every evening Disposition pending physical therapy evaluation May need renal social worker and correctional casework specialist involved Subjective Date/time seen: 05/28/25 11:39 Interval history: Denies any chest pain or shortness of breath. No orthopnea. Has been able to get up to ambulate to the bathroom without great difficulties. Review of Systems Cardiovascular: Cardiovascular: Reports as per HPI Respiratory: Respiratory: Reports as per HPI Exam Const: General: comfortable HENMT: Mouth: Yes moist mucous membranes Eyes: EOM: EOMs intact bilaterally Neck: Neck: no JVD Resp: Effort & Inspection: normal respiratory effort Auscultation: clear to auscultation bilaterally Cardio: Rate: regular rate Rhythm: regular rhythm GI: GI Palp: Yes Soft to palpation Neuro: Speech: normal speech Extrem: General: no pedal edema Objective Data Vital Signs Vital Signs: Vital Signs - 24 hr 05/27/25 12:00 05/27/25 12:00 05/27/25 12:00 Temperature 36.8 C Pulse Rate 62 63 Respiratory Rate 31 H Blood Pressure 112/68 Pulse Oximetry 97 98 Oxygen Delivery Room Air 05/27/25 14:00 05/27/25 16:00 05/27/25 16:00 Temperature 37.3 C Pulse Rate 52 L 54 L Respiratory Rate 24 H Blood Pressure 117/55 L Pulse Oximetry 98 97 Oxygen Delivery Room Air 05/27/25 16:00 05/27/25 18:00 05/27/25 20:00 Temperature 36.5 C Pulse Rate 55 L 57 L 64 Respiratory Rate 27 H Blood Pressure 118/60 Pulse Oximetry 96 Oxygen Delivery 05/27/25 20:00 05/27/25 20:00 05/27/25 20:39 Temperature Pulse Rate 57 L 57 L 60 Respiratory Rate 22 H Blood Pressure Pulse Oximetry 96 Oxygen Delivery Room Air 05/27/25 22:00 05/28/25 00:00 05/28/25 00:00 Temperature Pulse Rate 50 L 58 L 50 L Respiratory Rate 21 H Blood Pressure Pulse Oximetry 96 Oxygen Delivery Room Air 05/28/25 02:00 05/28/25 02:00 05/28/25 04:00 Temperature 36.8 C Pulse Rate 56 L 50 L 50 L Respiratory Rate 21 H 21 H Blood Pressure 105/54 L Pulse Oximetry 97 97 Oxygen Delivery Room Air 05/28/25 04:00 05/28/25 04:00 05/28/25 06:00 Temperature 36.8 C Pulse Rate 51 L 53 L 54 L Respiratory Rate 22 H Blood Pressure 111/54 L Pulse Oximetry 95 Oxygen Delivery 05/28/25 08:00 05/28/25 08:00 05/28/25 08:00 Temperature 36.6 C Pulse Rate 61 63 63 Respiratory Rate 21 H 21 H Blood Pressure 139/61 Pulse Oximetry 98 98 Oxygen Delivery Room Air 05/28/25 08:34 05/28/25 09:41 05/28/25 10:03 Temperature Pulse Rate 64 Respiratory Rate Blood Pressure Pulse Oximetry Oxygen Delivery Room Air Room Air 05/28/25 10:04 Temperature Pulse Rate 63 Respiratory Rate Blood Pressure Pulse Oximetry Oxygen Delivery Intake/Output Intake/Output: Intake & Output 05/25/25 05/26/25 05/27/25 05/28/25 23:59 23:59 23:59 23:59 Intake Total 1397.9 621.0 360 Output Total 500 127 402 Balance 897.9 494.0 -42 Meds/Results Medications: Active Medications Generic Name Dose Route Start Last Admin Trade Name Freq PRN Reason Stop Dose Admin Acetaminophen 650 mg 05/26/25 16:58 05/26/25 17:32 Acetaminophen 325 Mg Tablet PO 650 mg Q4H PRN Administration Mild Pain (1-3) or Fever Aspirin 81 mg 05/26/25 09:00 05/28/25 10:05 Aspirin 81 Mg Enteric Tablet PO 81 mg QAM [facility] Administration Atorvastatin Calcium 80 mg 05/26/25 21:00 05/27/25 20:39 Atorvastatin 40 Mg Tablet PO 80 mg QHS SAAD Administration Clopidogrel Bisulfate 75 mg 05/26/25 09:00 05/28/25 10:05 Clopidogrel Bisulfate 75 Mg Tablet PO 75 mg QAM [facility] Administration Empagliflozin 10 mg 05/28/25 09:00 05/28/25 10:04 Empagliflozin 10 Mg Tablet PO 10 mg DAILY SAAD Administration Enoxaparin Sodium 40 mg 05/26/25 09:00 05/28/25 10:04 Enoxaparin 40 Mg/0.4 Ml Syringe SUB-Q 40 mg DAILY [facility] Administration Losartan Potassium 25 mg 05/26/25 09:15 05/28/25 10:05 Losartan Potassium 25 Mg Tablet PO 25 mg DAILY SAAD Administration Metoprolol Succinate 25 mg 05/28/25 09:00 05/28/25 10:04 Metoprolol Succinate Ext Rel 25 Mg Tabcr PO 25 mg QAM [facility] Administration Spironolactone 25 mg 05/28/25 09:00 05/28/25 10:04 Spironolactone 25 Mg Tablet PO 25 mg QAM [facility] Administration Radiology Results: ITS Impressions Chest X-Ray 05/26/25 11:43 IMPRESSION: 1. Minimal bibasilar atelectasis. 2. Lungs otherwise clear. Venous Doppler Study 05/26/25 12:45 IMPRESSION: 1. No DVT either leg. Labs Labs: Laboratory Results - last 24 hr 05/28/25 05/28/25 04:13 04:16 WBC 7.5 RBC 3.36 L Hgb 10.6 L Hct 32.6 L MCV 97.0 MCH 31.5 MCHC 32.5 RDW 14.1 Plt Count 242 MPV 10.1 Sodium 139 Potassium 3.6 Chloride 111 H Carbon Dioxide 23 Anion Gap 5 BUN 15 Creatinine 0.91 Estim Creat Clear Calc 51 Estimated GFR > 60 Glucose 106 Calcium 7.9 L Magnesium 2.0 Total Bilirubin 0.5 AST 49 ALT 19 Alkaline Phosphatase 67 Total Protein 5.9 L Albumin 2.6 L
--- NOTE | 2025-05-28 15:02 | P.DS_ITS ---
DS: Admitting Diagnosis Discharge Date 05/28/2025 Admitting Diagnosis Inferior STEMI DS: Discharge Diagnosis Discharge Diagnosis (1) ST elevation (STEMI) myocardial infarction: Code(s): I21.3 - ST elevation (STEMI) myocardial infarction of unspecified site Status: Acute (2) Ischemic cardiomyopathy: Code(s): I25.5 - Ischemic cardiomyopathy Status: Acute (3) Hyperlipidemia: Code(s): E78.5 - Hyperlipidemia, unspecified Status: Acute Plan Continue aspirin 81 mg p.o. daily and Plavix 75 mg p.o. daily Continue atorvastatin 80 mg every evening Continue metoprolol succinate 25 mg p.o. daily, losartan 25 daily, spironolactone 25 mg p.o. daily Jardiance 10 mg p.o. daily Outpatient cardiac rehab referral Repeat transthoracic echocardiogram outpatient DS: Summary Hospital Course Reason for hospitalization: Chest pain Hospital Course: 85-year-old man with coronary artery disease status post PCI to the OM and RCA, infrarenal abdominal aneurysm status post EVAR, hypertension, and hyperlipidemia presented with chest pain whose presentation is consistent with inferior STEMI. During EMS en route, he had 2 episodes of ventricular fibrillation for which he required defibrillation. He was emergently brought to the cardiac catheterization lab where PCI was performed to his RPDA and distal left circumflex. During cardiac catheterization, he sustained another 2 episodes of ventricular fibrillation which were terminated with fibrillation. After successful PCI, he was monitored in the ICU with amiodarone drip. His amiodarone drip has been discontinued and he continues to maintain normal rhythm. His echocardiogram did show moderately reduced systolic function for which guideline directed medical therapy has been initiated. He has been doing well. Time spent discussing smoking cessation with patient: 3 to 10 minutes Time Spent with Patient Time attestation: Total time spent providing and/or coordinating discharge services: Time spent: Greater than 30 minutes Exam Const: General: comfortable HENMT: Mouth: Yes moist mucous membranes Eyes: EOM: EOMs intact bilaterally Neck: Neck: no JVD Resp: Effort & Inspection: normal respiratory effort Auscultation: clear to auscultation bilaterally Cardio: Rate: regular rate Rhythm: regular rhythm GI: GI Palp: Yes Soft to palpation Extrem: General: no pedal edema DS: Data Data Completed and Pending Labs on day of discharge: Labs from last 24 hours 05/28/25 05/28/25 04:16 04:13 WBC 7.5 RBC 3.36 L Hgb 10.6 L Hct 32.6 L MCV 97.0 MCH 31.5 MCHC 32.5 RDW 14.1 Plt Count 242 MPV 10.1 Sodium 139 Potassium 3.6 Chloride 111 H Carbon Dioxide 23 Anion Gap 5 BUN 15 Creatinine 0.91 Estim Creat Clear Calc 51 Estimated GFR > 60 Glucose 106 Calcium 7.9 L Magnesium 2.0 Total Bilirubin 0.5 AST 49 ALT 19 Alkaline Phosphatase 67 Total Protein 5.9 L Albumin 2.6 L Discharge Plan Discharge Attending physician on discharge: Dany Bennett Discharging Clinician: Dany Bennett Patient Disposition: Home with Home Health Service Activity: other - see discharge instructions Diet: heart healthy Wound Care Instructions: other - see discharge instructions Discharge Instructions: Per Care Coordination: [facility] Home Health to resume services at discharge. [facility] Home Health will follow for PT/OT eval and treat. [facility] Home Health can be contacted at . Nursing please fax discharge paperwork Patient Instructions: Antibiotic Form, How to Stop Smoking (DC), Acute Coronary Syndrome (DC), Left Heart Catheterization (GEN) Patient Language: Belizean Stand Alone Forms: General Discharge Information Follow-up/Referrals: Dany Bennett MD [Physician, Interventional Cardiology] Discharge Medications: New clopidogrel 75 mg Tablet 75 mg PO QAM Qty: 90 0RF aspirin 81 mg Tablet,Delayed Release (Dr/Ec) 81 mg PO QAM Qty: 90 0RF spironolactone 25 mg Tablet 25 mg PO QAM Qty: 90 0RF losartan 25 mg Tablet 25 mg PO DAILY Qty: 90 0RF metoprolol succinate [Toprol XL] 25 mg Tablet Extended Release 24 Hr 25 mg PO QAM Qty: 90 0RF atorvastatin [Lipitor] 80 mg tablet 80 mg PO HS Qty: 90 0RF empagliflozin 10 mg tablet 10 mg PO QAM Qty: 90 0RF Date of admission: 05/25/25 23:53 Primary Care Provider: UNKNOWN,DOCTOR Admitting Provider: Dany Bennett Attending physician on admission: Dany Bennett Condition: Guarded Prognosis
--- NOTE | 2025-05-28 15:33 | PC.NURSE ---
Medications received from [facility] for Meds to Bed at approximately 1400 today. Discussed with patient son (Jose Alfredo MenjivarJr) all discharge instructions also highlighted all important information for him to review when the patient gets home. The patient requested that this RN discuss this information with his son as he is extremely hard of hearing and his son helps him at home. All medications reviewed with son over the phone and also highlighted on discharge paperwork including last dose given and when the next dose is due. This discharge information was also copied and placed on the chart. Discussed right groin dressing removal with patient's son, and wrote out instructions related to signs of infection and signs of bleeding and when to call doctor/EMS. Furthermore discussed to call cardiology for follow up appointment. Verbalized understanding over the phone.
--- OUTSIDE RECORDS SUMMARY | 2025-05-29 11:33 | XMS_ITS | Encounter Summary ---
Author Organization [facility] Healthcare Address [address] [place] [address] Care Team Providers Care Fork Truck Operator Name Role Phone Royce Panda MD Primary Care Provider [phone] Elen Navarro MD Primary Care Provider [phone] No, Physician Primary Care Provider [phone] Na Agarwal MD Primary Care Provider [phone] No, Physician Primary Care Provider [phone] Encounter Details Date Type Department Care Team (Late st Contact Info) Description 05/30/2018 Orders Only [facility] Health Information Management [address] [place] [id number] Scanning, Provider Social History Tobacco Use Types Packs/Day Years Used Date Smoking Tobacco: Every Day Comments:Smoking History Pac ks/day: 1 Packs Alcohol Use Standard Drinks/Week Comments Yes 0 (1 standard drink = 0.6 oz pur e alcohol) Sex and Gender Information Value Date Recorded Sex Assigned at Not on file 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
--- OUTSIDE RECORDS SUMMARY | 2025-05-29 11:33 | XMS_ITS | Encounter Summary ---
Author Organization [facility] Healthcare Address [address] [place] [address] Care Team Providers Care Stage Electrician Name Role Phone No, Physician Primary Care Provider [phone] Encounter Details Date Type Department Care Team (Late st Contact Info) Description 05/28/2025 Telephone [facility] Medical Group Cardiology [address] [place] [address] Marj Copeland MA Social History Tobacco Use Types Packs/Day Years Used Date Smoking Tobacco: Every Day Cigarettes Comments:Smoking History Pac ks/day: 1 Packs Alcohol Use Standard Drinks/Week Comments Yes 0 (1 standard drink = 0.6 oz pur e alcohol) Sex and Gender Information Value Date Recorded Sex Assigned at Not on file 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 Escudero in 1-2 weeks? Can see CHIEF MEDICAL TECHNOLOGIST Dany Perez 05/28/25- [facility] for pt. Can schedule on Dk's schedule at 8:15am documented in this encounter Plan of Treatment Not on file documented as of this encounter Visit Diagnoses Not on filedocumented in this encounter Care Teams Stage Electrician Relationship Specialty Start Date End Date No, Physician PCP - General 03/04/22 documented as of this encounter
--- OUTSIDE RECORDS SUMMARY | 2025-05-29 11:33 | XMS_ITS | Encounter Summary ---
Author Organization [facility] Healthcare Address [address] [place] [address] Care Team Providers Care Munitions Factory Worker Name Role Phone Royce Panda MD Primary Care Provider [phone] Elen Navarro MD Primary Care Provider [phone] No, Physician Primary Care Provider [phone] Na Agarwal MD Primary Care Provider [phone] No, Physician Primary Care Provider [phone] Encounter Details Date Type Department Care Team (Late st Contact Info) Description 05/28/2018 Orders Only 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
--- OUTSIDE RECORDS SUMMARY | 2025-05-29 11:33 | XMS_ITS | Clinical Summary ---
Author Organization [facility] Address [address] [place] [address] Care Team Providers Care Car Starter Name Role Phone Harvey Justin DO Primary Care Provider Carol Ann Cannon MD Unavailable [phone] Source Comments [facility] [employer],non-owned Affiliates and Associated Physician Practices is amultiple site organization consisting of ambulatory clinics and hospital sitesin [place], [place], [place] and [place]. This disclosure is being madepursuant to the Care Everywhere program and may not contain all information available regarding this patient. 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
--- OUTSIDE RECORDS SUMMARY | 2025-05-29 11:33 | XMS_ITS | Clinical Summary ---
Author Organization [facility] [address] Address [address] [place] [address] Care Team Providers Care X Ray Technologist Name Role Phone No, Physician Primary Care Provider [phone] Allergies Active Allergy Reactions Criticality Noted Date [...] coronary artery 03/06/2013 Overview (12/17/2016): CAD, Unspecified Encounters Date Type Department Care Team Description 05/28/2025 Telephone [facility] Medical Group Cardiology [address] [place] [address] Marj Copeland MA from Last 3 Months Immunizations Immunization Administration Dates Next Due Tdap [...] on file 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 Gender Identity Not on file Sexual Orientation Not on file Obstetrics History Last Filed Vital Signs Vital Sign Reading Time Taken Comments Blood Pressure 116/74 03/04/2022 2:03 PM CDT Pulse 105 03/04/2022 2:03 PM CDT Temperature 36.3 C (97.3 F) 03/17/2021 10:16 AM CDT Respiratory Rate 15 07/10/2020 11:36 AM CLAMMER Oxygen Saturation 96% 03/04/2022 2:03 PM CDT Inhaled Oxygen Concentration - - Weight 71.7 kg (158 lb) 03/04/2022 2:03 PM CDT Height 165.1 cm (5' 5) 03/04/2022 2:03 PM CDT Body Mass Index 26.29 03/04/2022 2:03 PM CDT Plan of Treatment Not on file Insurance [facility] [place] [facility] [place] Care Teams X Ray Technologist Relationship Specialty Start Date End Date No, Physician PCP - General 03/04/22
== END 2025-05-28 16:00 | disposition home health service (06) | DRG 321 ==
LOC: ANHED 21:18 → ANHICU 23:57 → ANHIMU 05-28 12:10 → ANHICU 05-29 10:47 → ANHIMU 05-29 10:47
PROVIDERS: Emergency Medicine; Internal Medicine; Nurse Practitioner; Admitting Provider Internal Medicine; Emergency Provider Emergency Medicine; Visit Provider Internal Medicine
PROC: 4A023N7 Measurement of Cardiac Sampling and Pressure, Left Heart, Percutaneous Approach (ICD-10-PCS; CPT 93452; principal; 2025-05-25 21:00)
PROC: 027034Z Dilation of Coronary Artery, One Artery with Drug-eluting Intraluminal Device, Percutaneous Approach (ICD-10-PCS; CPT 92928; 2025-05-25 21:00)
PROC: 027135Z Dilation of Coronary Artery, Two Arteries with Two Drug-eluting Intraluminal Devices, Percutaneous Approach (ICD-10-PCS; 2025-05-25 21:00)
PROC: 027135Z Dilation of Coronary Artery, Two Arteries with Two Drug-eluting Intraluminal Devices, Percutaneous Approach (ICD-10-PCS; 2025-05-25 21:00)
PROC: 027135Z Dilation of Coronary Artery, Two Arteries with Two Drug-eluting Intraluminal Devices, Percutaneous Approach (ICD-10-PCS; CPT 92979; 2025-05-25 21:00)
PROC: 027135Z Dilation of Coronary Artery, Two Arteries with Two Drug-eluting Intraluminal Devices, Percutaneous Approach (ICD-10-PCS; 2025-05-25 21:00)
DX: I21.19 ST elevation (STEMI) myocardial infarction involving other coronary artery of inferior wall (principal); I49.01 Ventricular fibrillation; I23.8 Other current complications following acute myocardial infarction; I25.10 Atherosclerotic heart disease of native coronary artery without angina pectoris; I10 Essential (primary) hypertension; E78.5 Hyperlipidemia, unspecified; F17.210 Nicotine dependence, cigarettes, uncomplicated; M79.89 Other specified soft tissue disorders; I73.9 Peripheral vascular disease, unspecified; I25.5 Ischemic cardiomyopathy; Z95.5 Presence of coronary angioplasty implant and graft
CPT/HCPCS: 36415; 71045; 80053; 80061; 83735; 83880; 84100; 84439; 84443; 84484; 85025; 85027; 85610; 85730; 86850; 86900; 86901; 87045; 87046; 87427; 87493; 87641; 92978; 92979; 93005; 93458; 93970; 96374; 97162; 97166; 99285; A9270; C1725; C1753; C1760; C1769; C1874; C1887; C1894; C8929; C9600; C9606; G0269; J0282; J0613; J1644; J1650; J2003; J2250; J2305; J2404; J3010; J3475; J7030; J7040; Q9957